=== PATIENT | male | born 1955 | race Caucasian/White ===

== ENCOUNTER → 2017-09-29 | Day surgery (SDC) | payer OTHER ==
[2017-09-28 09:46] VITALS: Ht 177.8 cm; Wt 102.3 kg
[~2017-09-29] VITALS: Ht 177.8 cm; Wt 102.3 kg
[~2017-09-29] MED LIST: ADAL1KIT SC; LIDOCAINE HCL 2% 2 ML VIAL (20MG/ML) ONE; MIDAZOLAM HCL 1 MG/ML 2ML VIAL ONE; MULT-506 PO; ONDANSETRON INJ 2 MG/ML 2 ML VIAL ONE; PANT40TA PO; PROPOFOL IV EMULSION 10 MG/ML 20 ML VIAL IV ONE; SYMIN160 INH
--- NOTE | 2017-09-29 11:04 | Endo History and Physical ---
History & Physical Date of Service: Sep 29, 2017. Chief Complaint: ulcerative colitis Referring Physician: Dr. Maynor East History of Present Illness 62 yo CM who presents for colonoscopy secondary to ulcerative colitis. Past Medical History Reflux, Depression Past Surgical History Hx Cardiac Surgery: No Hx Internal Defibrillator: No Hx Pacemaker: No Hx Abdominal Surgery: No Hx of Implantable Prosthesis: No Hx Post-Op Nausea and Vomiting: No Hx Cancer Surgery: No Hx Thoracic Surgery: No Hx Orthopedic: Yes (LT/RT RCR) Hx Urinary Tract Surgery: No Family History IBD Social History Smoking Status: Former Smoker Hx Substance Use: Yes (OCCASIONAL CANNIBUS FOR UC SYMPTOMS) Hx Alcohol Use: Yes ("HARDLY EVER") Allergies Coded Allergies: Infliximab (Verified Adverse Reaction, Intermediate, Redness, Itching, Hives, 09/28/17) Patient had remicade X 3 first two times he had redness and itching, on the third time he had redness, itching, and hives. Dr. Maykel braun and DC medication. Current Medications Reported Home Medications Medications Dose Route/Sig Max Daily Dose Days Date Category Symbicort 160/4.5 Inhaler (Budesonide/Formoterol Fumarate) Aero 2 Puffs INH BID PRN 09/28/17 Reported Multivitamin (Multivitamins) Tab 1 Tab PO DAILY 09/28/17 Reported Protonix (Pantoprazole Sodium) 40 Mg Tab 40 Mg PO QAM 12/18/14 Reported Humira (Adalimumab) 40 Mg/0.8 Ml Kit 40 Mg SC [id number] 01/24/14 Reported Vital Signs Weight (Kilograms): 102.27 Height (Feet): 5 Height (Inches): 10 Date Time Temp Pulse Resp B/P (MAP) Pulse Ox O2 Delivery O2 Flow Rate FiO2 09/29/17 10:40 36.7 75 18 146/94 (111) 98 Room Air Physical Exam General Appearance: WD/WN, no apparent distress Respiratory/Chest: Auscultation: breath sounds normal Cardiovascular: Heart Auscultation: RRR Abdomen: Bowel Sounds: normal Inspection & Palpation: soft, non-distended, no tenderness, guarding & rebound Assessment and Plan Assessment: 62 yo CM who presents for colonoscopy secondary to ulcerative colitis. Plan: Proceed with colonoscopy.
--- NOTE | 2017-09-29 12:24 | Discharge Instructions ---
Endoscopy Patient Instructions Date / Procedure(s) Performed Sep 29, 2017. Colonoscopy Allergy Information Coded Allergies: Infliximab (Verified Adverse Reaction, Intermediate, Redness, Itching, Hives, 09/28/17) Patient had remicade X 3 first two times he had redness and itching, on the third time he had redness, itching, and hives. Dr. Maykel braun and JOSE medication. Discharge Date / Findings Sep 29, 2017. Ulcerative colitis with mild disease activity in left colon s/p biopsies Medication Instructions OK to resume all medications today as prescribed Reported Home Medications Medications Dose Route/Sig Max Daily Dose Days Date Category Symbicort 160/4.5 Inhaler (Budesonide/Formoterol Fumarate) Aero 2 Puffs INH BID PRN 09/28/17 Reported Multivitamin (Multivitamins) Tab 1 Tab PO DAILY 09/28/17 Reported Protonix (Pantoprazole Sodium) 40 Mg Tab 40 Mg PO QAM 12/18/14 Reported Humira (Adalimumab) 40 Mg/0.8 Ml Kit 40 Mg SC [id number] 01/24/14 Reported Provider Instructions Activity Restrictions - No exercising or heavy lifting for 24 hours. - Do not drink alcohol the day of the procedure. - Do not drive a car or operate machinery until the day after the procedure. - Do not make any important decisions or sign important papers in 24 hours after the procedure. Following Day: - Return to full activity which may include returning to work/school. Diet Start your diet with liquids and light foods (jello, soup, juice, toast). Then eat your usual diet if not nauseated. Treatment For Common After Affects For mild abdominal pain, bloating, or excessive gas: - Rest - Eat lightly - Lie on right side Follow-Up Information Follow-up with Dr. Maynor East as scheduled Anesthesia Information What You Should Know You have had a procedure that required some medicine to reduce anxiety and discomfort. This treatment is called moderate sedation. After receiving the treatment, you may be sleepy, but you will be able to breathe on your own. The effects of the treatment may last for several hours. Follow these instructions along with Activity/Diet recommendations noted above: * Do NOT do anything where dizziness or clumsiness would be dangerous. * Rest quietly at home today, then you can be up and about tomorrow. * Have a responsible person stay with you the rest of today. * You may have had an I.V. today. If so, you may take the dressing off later today. Recommendations Call your doctor if: * Trouble breathing * Continuous vomiting for more than 24 hours * Temperature above 101 degrees * Severe abdominal pain or bloating * Pain not relieved by pain medicine ordered * There is increased drainage or redness from any incision * A large amount of rectal bleeding greater than 2-3 tablespoons. (If you had a polyp/s removed or have hemorrhoids, a small amount of blood - from the rectum is to be expected.) * You have any unanswered questions or concerns. IN THE EVENT OF A SERIOUS EMERGENCY, GO TO THE NEAREST EMERGENCY ROOM Your discharge instructions were prepared by provider Noe Brar. Patient Instructions Signature Page Isauro Costello Patient (or Guardian) Signature/Date: I have read and understand the instructions given to me by my caregivers. Caregiver/RN/Doctor Signature/Date: The above-named patient and/or guardian has received patient instructions on this date. + Original Patient Signature Page (only) stays with chart. Please make copy for patient.
--- NOTE | 2017-09-29 12:32 | GI REPORT ---
Procedure Date: 09/29/2017 11:34 AM Procedure: Colonoscopy Indications: Disease activity assessment of chronic ulcerative pancolitis Medicines: Monitored Anesthesia Care Complications: No immediate complications. Estimated Blood Loss: Estimated blood loss: none. Procedure: Pre-Anesthesia Assessment: - Prior to the procedure, a History and Physical was performed, and patient medications and allergies were reviewed. The patient's tolerance of previous anesthesia was also reviewed. The risks and benefits of the procedure and the sedation options and risks were discussed with the patient. All questions were answered, and informed consent was obtained. Prior Anticoagulants: The patient has taken no previous anticoagulant or antiplatelet agents. ASA Grade Assessment: III - A patient with severe systemic disease. After reviewing the risks and benefits, the patient was deemed in satisfactory condition to undergo the procedure. After I obtained informed consent, the scope was passed under direct vision. Throughout the procedure, the patient's blood pressure, pulse, and oxygen saturations were monitored continuously. The scope was introduced through the anus and advanced to the terminal ileum. The colonoscopy was performed without difficulty. The patient tolerated the procedure well. The quality of the bowel preparation was good. The terminal ileum, ileocecal valve, appendiceal orifice, and rectum were photographed. Findings: The perianal and digital rectal examinations were normal. Multiple small-mouthed diverticula were found in the sigmoid colon. Inflammation characterized by erosions and erythema was found in a continuous and circumferential pattern from the rectum to the sigmoid colon. This was mild in severity. Biopsies were taken with a cold forceps for histology. Non-bleeding internal hemorrhoids were found during retroflexion. The hemorrhoids were small. Impression: - Diverticulosis in the sigmoid colon. - Ulcerative colitis. Inflammation was found from the rectum to the sigmoid colon. This was mild in severity. Biopsied. - Non-bleeding internal hemorrhoids. Recommendation: - Resume previous diet. - Continue present medications. - Repeat colonoscopy for surveillance based on pathology results. - Return to primary care physician as previously scheduled. Noe Brar DO 09/29/2017 12:31:32 PM This report has been signed electronically. Note Initiated On: 09/29/2017 11:34 AM I attest to the content of the Intraoperative Record and orders documented therein, exceptions below
--- NOTE | 2017-09-29 12:52 | Anesthesiology Progress Note ---
Anesthesia Post Op Note Date & Time Sep 29, 2017 at 12:52 Vital Signs Pain Intensity: 0 Vital Signs Past 12 Hours Date Time Temp Pulse Resp B/P (MAP) Pulse Ox O2 Delivery O2 Flow Rate FiO2 09/29/17 12:23 36.7 90 18 137/85 (102) 95 Room Air 09/29/17 10:40 36.7 75 18 146/94 (111) 98 Room Air Notes Mental Status: alert / awake / arousable, participated in evaluation Pt Amnestic to Procedure: Yes Nausea / Vomiting: adequately controlled Pain: adequately controlled Airway Patency, RR, SpO2: stable & adequate BP & HR: stable & adequate Hydration State: stable & adequate Anesthetic Complications: no major complications apparent
[2017-09-29 12:55] VITALS: BP 144/88; PULSE 76; O2SAT 94
== END | disposition home or self-care (01) ==
LOC: C.GI 10:01
PROVIDERS: ATTEND Internal Medicine
DX: K51.00 Ulcerative (chronic) pancolitis without complications (principal); K57.30 Diverticulosis of large intestine without perforation or abscess without bleeding; K51.90 Ulcerative colitis, unspecified, without complications; K64.8 Other hemorrhoids; F12.90 Cannabis use, unspecified, uncomplicated; Z88.8 Allergy status to other drugs, medicaments and biological substances; Z79.899 Other long term (current) drug therapy; Z87.891 Personal history of nicotine dependence

== ENCOUNTER 2022-05-13 10:57 | Inpatient (IN) ==
--- NOTE | 2022-05-13 11:25 | Emergency Department Note ---
History of Present Illness General Chief complaint: Back Injury/Pain Stated complaint: BACK PAIN; CAN BARELY WALK Time Seen by Provider: 05/13/22 11:24 History of Present Illness Maximum Pain Intensity: 4 This is a 66-year-old male with a history of known disc herniation at L2-L3 and L4-L5 diagnosed via CT scan on 01/29/2022, ulcerative colitis, hypertension, prediabetes, who presents with low back pain present over the past several days, not getting any better. This starts in the low back and radiates down both legs to about the knees. The pain radiating down the right leg is new, the pain on the left is similar to prior episodes of back pain, especially when he was seen in this ED on 01/29/2022. He reports an ongoing "itching" sensation in his left lateral thigh that has been present since January. This pain began several hours after lifting and moving heavy objects in his garage. He has been taking gabapentin twice daily since January, and has recently been using previously prescribed hydrocodone and muscle relaxants without any relief. When he is laying flat, his pain is a 4 out of 10, 7 out of 10 when attempting to walk. He is having a hard time getting comfortable. He denies any chest pain, abdominal pain, nausea, vomiting, loss of bowel or bladder function, leg w eakness, urinary retention, saddle anesthesia, fevers, chills. He did follow-up with orthospine, Dr. Cavanaugh, after his episode of pain in January. He states he was offered injections but ended up declining these because his pain began to improve. He is unsure if he had an MRI of his back through [facility] [place]. Home Medications Medication Instructions Recorded Confirmed Type pantoprazole 40 mg tablet,delayed 40 mg PO QAM 12/15/21 05/13/22 History release atorvastatin 20 mg tablet 20 mg PO QPM #90 tabs 04/07/22 05/13/22 Rx tofacitinib 5 mg tablet (Xeljanz) 5 mg PO BID #180 tabs 04/21/22 05/13/22 Rx amlodipine 5 mg-olmesartan 20 mg 1 tab PO DAILY #90 tabs 04/30/22 05/13/22 Rx tablet cyclobenzaprine 5 mg tablet 5 mg PO TID PRN muscle spasm #60 04/30/22 05/13/22 Rx tabs Medical Cannabis 1 dose inhalation HS 05/13/22 05/13/22 History gabapentin 100 mg capsule 100 mg PO BID 05/13/22 05/13/22 History Allergies Allergy/AdvReac Type Severity Reaction Status Date / Time infliximab Allergy Intermediate REMICADE---Redness, Verified 05/13/22 19:33 Itching, Hives Past Med/Surg History Medical History Chronic back pain Chronic obstructive pulmonary disease mild, no inhaler Dyslipidemia per records History of antinuclear antibodies History of COVID-19 05/2021 treated at [facility] with monoclonal antibody IV infusion Hx of cataract bilat. Medical marijuana use Obesity Prediabetes Ulcerative colitis Surgical History H/O colonoscopy (10/2016) History of colonoscopy (01/09/20) Dr. Brar, yesika ulcerative colitis with inflammation from rectum to cecum, mild. Repeat recommended 2 years History of esophagogastroduodenoscopy (EGD) (01/2014) History of repair of left rotator cuff History of repair of right rotator cuff History of tooth extraction Hx of cataract extraction Lt. S/P right knee arthroscopy Family History Father Diabetes Family history of diabetes mellitus Brother Family history of diabetes mellitus Brother Family history of diabetes mellitus Other No family history of adverse response to anesthesia Ulcerative colitis Denies family history of Ovarian cancer Prostate cancer Crohn's disease Myocardial infarction Breast cancer Lung cancer Colorectal cancer Social History Smoking Status: Never smoker Tobacco Type: E-cigarettes / Vaping Age Started Using Tobacco: 17; Age Quit Using Tobacco: 52; packs per day: 1; Years Smoked: 35; Cigarettes Per Day: 20/day; Number of Years Since Quit: 12; Second Hand Exposure: No; Hx Alcohol Use: Yes Alcohol type: hard liquor Alcohol Intake Frequency: Monthly or Less Hx Substance Use: Yes (medical marijuana "nightly") Last Used Substance: Hours (ago) Last Used Substance Other:: 12/14/21 Preferred Language: Iraqi Communication Ability: Effective Visual Impairment: Limited Hearing Ability: Normal 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 and A total of 10 systems reviewed and were otherwise negative Physical Exam Vital Signs Vital Signs - 24 hr 05/13/22 11:03 05/13/22 13:00 05/13/22 13:32 Temperature 98.1 F Temperature Source Temporal Artery Scan Pulse Rate 99 H Pulse Rate [Finger] 75 Pulse Rhythm Regular Pulse Rhythm [Finger] Regular Pulse Strength Normal Pulse Strength [Finger] Normal Respiratory Rate 20 16 Respiratory Effort / Characteristics Non-Labored Spontaneous Non-Labored Respiratory Depth Normal Normal Respiratory Pattern Regular Regular Blood Pressure 119/67 Blood Pressure [Right Arm] Blood Pressure Mean 84 Blood Pressure Mean [Right Arm] Blood Pressure Position Sitting Blood Pressure Position [Right Arm] Pulse Oximetry 95 98 98 Oxygen Delivery Method Room Air Room Air Room Air Sepsis Recent Fever Within 48 Hours No Sepsis New/Unexplained Change in Mental Status N/A Sepsis Action Taken by Nursing No Action Required 05/13/22 17:00 05/13/22 20:21 Temperature Temperature Source Pulse Rate Pulse Rate [Finger] 84 90 Pulse Rhythm Pulse Rhythm [Finger] Pulse Strength Pulse Strength [Finger] Respiratory Rate 20 17 Respiratory Effort / Characteristics Non-Labored Spontaneous Respiratory Depth Normal Respiratory Pattern Blood Pressure Blood Pressure [Right Arm] 148/87 H 151/96 H Blood Pressure Mean Blood Pressure Mean [Right Arm] 107 114 Blood Pressure Position Blood Pressure Position [Right Arm] Lying Pulse Oximetry 98 92 Oxygen Delivery Method Room Air Sepsis Recent Fever Within 48 Hours Sepsis New/Unexplained Change in Mental Status Sepsis Action Taken by Nursing CONSTITUTIONAL: Well developed, well nourished, appears uncomfortable having a hard time finding a comfortable position on the stretcher. HEAD: Normocephalic, atraumatic. EYES: conjunctivae normal, extraocular muscles intact. ENMT: External ears normal. Nose with normal external appearance, no congestion. Oral mucous membranes moist. Oropharynx normal. NECK: Full active range of motion. RESPIRATORY: Breathing unlabored and symmetric. Lungs clear to auscultation bilaterally. No wheeze, rales, or rhonchi. CARDIOVASCULAR: Regular rate and rhythm. No murmurs, rubs, or gallops. DP pulses 2+ bilaterally. CHEST: Nontender, no crepitus. ABDOMEN: Normal bowel sounds. Soft, nontender, no peritonitis. No masses. MUSCULOSKELETAL: Moves bilateral upper and lower extremities at all joints. Back exam: There is no significant midline tenderness in the thoracic, lumbar, or sacral spine. There is exquisite tenderness in bilateral lumbar paraspinal musculature with associated tension. Having the patient sit upright at 90 degrees or flat causes severe pain. This is improved with an angle at 45 degrees. SKIN: [place], warm, dry. No rash on the back. NEUROLOGIC: Awake, alert, oriented. Gaze is conjugate. Face symmetric, speech normal. Moves head and all four extremities spontaneously. Strength 5+ in bilateral lower extremities including dorsiflexion, plantarflexion, EHL extension. Patellar reflexes 2+ bilaterally. Subjective decreased sensation to light touch in the right calf in an L3-L4 distribution. PSYCHIATRIC: Appropriate. Normal affect Course Reevaluation(s) Reevaluation #1: Patient resting much more comfortably after Dilaudid and dexamethasone. He tolerated MRI well. He is not requiring any additional pain medication at this time. Still have a fair amount of pain anytime he changes position. Administered Medications Discontinued Medications Dexamethasone Sodium Phosphate (DexamethasonePf 10 Mg/Ml Vial) 10 mg IV NOW ONE Stop: 05/13/22 13:31 Last Admin: 05/13/22 13:36 Dose: 10 mg Documented By: HARRY Diazepam (Diazepam 5 Mg Tablet) 5 mg PO NOW STA Stop: 05/13/22 11:47 Last Admin: 05/13/22 12:12 Dose: 5 mg Documented By: HARRY Hydromorphone HCl (Hydromorphone Inj 1 Mg/Ml Syringe) 1 mg IV NOW STA Stop: 05/13/22 13:31 Last Admin: 05/13/22 13:36 Dose: 1 mg Documented By: HARRY Hydromorphone HCl (Hydromorphone Inj 1 Mg/Ml Syringe) 1 mg IV NOW STA Stop: 05/13/22 18:12 Last Admin: 05/13/22 18:23 Dose: 1 mg Documented By: SEAMUS Ketorolac Tromethamine (Ketorolac Tromethamine 15 Mg/Ml Vial) 15 mg IV NOW STA Stop: 05/13/22 11:47 Last Admin: 05/13/22 12:12 Dose: 15 mg Documented By: OAM Lidocaine (Lidocaine 5% 1 Patch) 2 patch TD NOW STA Stop: 05/13/22 11:47 Last Admin: 05/13/22 12:12 Dose: 2 patch Documented By: OAM Medical Decision Making Differential Diagnosis Disc herniation, nerve impingement, myofascial pain, muscle spasm, strain, sprain, fracture, cauda equina, renal colic, intra-abdominal, aortic, transverse myelitis, among other pathology Medical Records Attestation: I reviewed the patient's medical records. (Patient did not have an MRI obtained through [facility]) Laboratory Data Result diagrams: 05/13/22 12:04 05/13/22 12:04 Lab Results 05/13/22 05/13/22 05/13/22 Range/Units 12:04 12:04 19:57 WBC 5.62 (4.8-10.8) K/ul RBC 4.80 (4.63-6.08) M/uL Hgb 14.8 (14.0-18.0) g/dl Hct 43.0 (40.1-51.0) % MCV 89.6 (80.0-100.0) fL MCH 30.8 (25.0-34.0) pg MCHC 34.4 (32.0-36.0) g/dL RDW Std Deviation 43.0 (36.4-46.3) fL RDW Coeff of Diana 13.1 (11.5-14.5) % Plt Count 239 (130-400) K/uL MPV 10.8 (9.4-12.4) fL Immature Gran % (Auto) 0.2 % Neut % (Auto) 63.9 % Lymph % (Auto) 23.5 % [place] % (Auto) 9.6 % Eos % (Auto) 2.3 % Baso % (Auto) 0.5 % Neut # (Auto) 3.59 (1.4-6.5) K/uL Lymph # (Auto) 1.32 (1.2-3.4) K/uL [place] # (Auto) 0.54 (0.24-0.82) K/uL Eos # (Auto) 0.13 (0-0.50) K/uL Baso # (Auto) 0.03 (0-0.2) K/uL Immature Gran # (Auto) 0.01 (0.00-0.02) K/uL Sodium 139 (136-145) mmol/L Potassium 3.8 (3.5-5.1) mmol/L Chloride 106 (98-107) mmol/L Carbon Dioxide 25 (21-32) mmol/L Anion Gap 8 (3-11) BUN 20 (6-23) mg/dl Creatinine 1.06 (0.6-1.4) mg/dl Est Cr Clr Drug Dosing Not Reportable Est GFR ( Amer) 83.2 ml/min Est GFR (Non-Af Amer) 71.8 ml/min BUN/Creatinine Ratio 18.9 (10-20) Glucose 144 H (70-99(Fasting)) mg/dl Calcium 9.4 (8.5-10.1) mg/dl SARS-CoV-2, RNA, NAAT NEGATIVE (NEGATIVE) Imaging Data Radiologist's Impression: Lumbar Spine X-Ray 05/13/22 11:46 XR lumbar spine 2-3V HISTORY: 66 years-old Male known lumbar pathology, flare of pain chronic low back pain COMPARISON: CT lumbar spine 01/29/2022, chest CT 03/06/2022. TECHNIQUE: 3 views of the lumbar spine FINDINGS: Demineralized appearance of the bones. Cholelithiasis. Unremarkable soft tissues. Atherosclerosis of the aorta with fusiform and minimal dilation, 3.2 cm. No acute fracture, subluxation or endplate erosion. Minimal intervertebral disc space narrowing and spondylitic spurring with moderate facet arthrosis. IMPRESSION: 1. No acute fracture or subluxation. 2. Cholelithiasis. 3. Atherosclerosis with unchanged mild aneurysmal dilation of the abdominal aorta. ACT 112: Negative or not required by law. The above report was generated using voice recognition software. It may contain grammatical, syntax or spelling errors. Electronically signed by: Neno Flynn M.D. 05/13/2022 1:01 PM Lumbar Spine MRI 05/13/22 13:30 MR lumbar spine wo con CLINICAL HISTORY: 66 years-old Male with severe lumbar pain, known herniations, worsening. Acute severe low back pain with lower extremity radicular symptoms. COMPARISON: Lumbar spine radiographs of same day, CT lumbar spine 01/29/2022, lumbar spine MRI 01/20/2016. TECHNIQUE: Multiplanar, multi sequence MRI of the lumbar spine was performed without intravenous contrast. FINDINGS: The apparatus lineman localizer images demonstrate no gross extraspinal abnormality. 5.0 cm T2 hyperintense lesion of the right kidney is suggestive of a probable cyst. The study is mildly motion degraded. No paravertebral edema, endplate erosion or destructive bone lesion are identified. The conus medullaris terminates at the L1 level. Normal signal within the imaged thoracic spinal cord. There is minimal superior endplate compression of the L4 vertebral body with less than 20% with mild marrow edema. T12-L1: Mild facet arthrosis. No central canal or neural foraminal stenosis. L1-L2: Mild facet arthrosis. No central canal or neural foraminal stenosis. L2-L3: Mild intervertebral disc space narrowing with spondylitic spurring and small circumferential annular disc bulge. Ligamentum flavum thickening with mild to moderate facet arthrosis. Flattening of the ventral thecal sac without significant central canal stenosis. Left foraminal/far lateral disc protrusion redemonstrated resulting in mild left foraminal narrowing, likely causing mass effect upon the exiting L2 nerve root. This finding is unchanged from the comparison CT study. The right neural foramen is patent. L3-L4: Mild intervertebral disc space narrowing with spondylitic spurring and small circumferential annular disc bulge with posterior disc osteophyte complex, eccentric to the left. Mild to moderate right with moderate left lateral recess narrowing. There is abutment with slight posterior displacement of the left L4 nerve root. Ligamentum flavum thickening with moderate facet arthrosis. The central canal and right neural foramen are patent. Mild to moderate left neural foraminal narrowing, progressed from the prior MRI. L4-L5: Disc desiccation with mild intervertebral disc space narrowing and spondylitic spurring. Small circumferential annular disc bulge with posterior disc osteophyte complex. Left foraminal/far lateral annular fissure. Ligamentum flavum thickening with severe facet arthrosis. Moderate to severe central canal stenosis, AP dimension of the thecal sac measuring 6 mm. There is at least moderate narrowing of the right greater than left lateral recesses. Mild to moderate bilateral foraminal narrowing. These findings have progressively worsened from the prior study. L5-S1: Mild spondylitic spurring with moderate facet arthrosis. No central brian l or neural foraminal stenosis. IMPRESSION: 1. Discogenic degeneration with spondylitic spurring and facet arthrosis as above. 2. Left foraminal/far lateral disc protrusion at L2-L3 is redemonstrated resulting in mild left foraminal narrowing with mass effect upon the exiting L2 nerve root. These findings appear similar to the 01/29/2022 CT study. 3. Moderate to severe central canal stenosis at L4-L5 has progressively worsened from the 01/20/2016 study. 4. Minimal superior endplate compression of less than 20% at L4 with mild marrow edema, likely subacute. ACT 112: Negative or not required by law. The above report was generated using voice recognition software. It may contain grammatical, syntax or spelling errors. Dictated: 05/13/2022 4:46 PM Transcribed: 05/13/2022 5:20 PM Rissa [id number] BALA_[place] Electronically signed by: Neno Flynn M.D. 05/13/2022 5:45 PM [facility] Narrative 66-year-old male presents with low back pain radiating into bilateral thighs that worsened several days ago after lifting and moving heavy objects in his garage. He has known lumbar disc herniations discovered on CT January of this year. Fortunately, patient does not have any red flag symptoms on ROS. He does have a significant amount of lumbar paraspinal muscular tenderness and spasm which I do suspect is at least contributing to his discomfort on top of his known lumbar pathology. Heart rate 99, otherwise vitals are stable. Slight decrease sensation in the right L3-L4 distribution, otherwise strength, sensation, and patellar reflexes are intact. Attempted to get patient comfortable with IV Valium, Toradol, and Lidoderm patches. X-rays of the lumbar spine were obtained demonstrating no significant changes. Labs show a glucose of 144, otherwise no significant abnormalities identified. On reevaluation the patient felt slightly better however his pain quickly returned so he was treated with Decadron and Dilaudid. As patient has already had a recent CT scan with progression of symptoms, decision was made to perform an MRI in the emergency department. While awaiting results, his pain was better controlled however it did begin to return and another dose of Dilaudid was required. Lumbar MRI redemonstrates the lateral disc protrusion at L2-L3, progression of the central canal stenosis at L4-L5 now moderate to severe, and a potentially new minimal superior endplate compression fracture at L4, likely subacute. Patient does not feel he can adequately function at home and given the amount of pain medication he is requiring, I spoke with Dr. Cavanaugh (orthospine on-call) who agreed the patient should be admitted for pain management and discussion of further management in the acute setting. I spoke with Dr. Frost (hospitalist) regarding the case who agrees to admit the patient under medicine with orthospine consult. Impression & Plan Acute radicular low back pain, Uncontrolled pain, Spinal stenosis at L4-L5 level, Closed compression fracture of L4 vertebra Discharge Plan Visit Data Chief Complaint: Back Injury/Pain Stated Complaint: BACK PAIN; CAN BARELY WALK ED Provider: Austyn Grayson ED Midlevel Provider: Jose Hicks Discharge Problem: Acute radicular low back pain, Uncontrolled pain, Spinal stenosis at L4-L5 level, Closed compression fracture of L4 vertebra Patient Disposition: Admitted As Inpatient Condition: Fair Forms Stand Alone Forms: [facility] Prescriptions Prescriptions: No Action atorvastatin 20 mg tablet 20 mg PO QPM Qty: 90 3RF Xeljanz 5 mg tablet 5 mg PO BID Qty: 180 3RF cyclobenzaprine 5 mg tablet 5 mg PO TID PRN (Reason: muscle spasm) Qty: 60 0RF amlodipine-olmesartan 5-20 mg tablet 1 tab PO DAILY Qty: 90 2RF pantoprazole 40 mg tablet,delayed release (DR/EC) 40 mg PO QAM Rx Instructions: TAKE 1 TABLET DAILY Medical Cannabis 1 dose inhalation HS Rx Instructions: VAPS gabapentin 100 mg capsule 100 mg PO BID Referrals Referrals: Bernice Ulloa CRNP [Nurse Practitioner] - : Closed compression fracture of L4 vertebra Qualifiers: Encounter type: initial encounter Qualified Code(s): S32.040A - Wedge compression fracture of fourth lumbar vertebra, initial encounter for closed fracture
[2022-05-13] MEDS ORDERED: KETOROLAC TROMETHAMINE 15 MG/ML VIAL IV STA (11:46)
[2022-05-13] MEDS ORDERED: diazePAM 5 MG TABLET PO STA (11:46)
[2022-05-13] MEDS ORDERED: LIDOCAINE 5% 1 PATCH TD STA (11:46)
[2022-05-13 12:24] LABS: Basophils # (auto) 0.03 K/uL (0-0.2); Basophils % (auto) 0.5 %; Eosinophils # (auto) 0.13 K/uL (0-0.50); Eosinophils % (auto) 2.3 %; Hemoglobin 14.8 g/dl (14.0-18.0); Immature Granulocytes # (auto) 0.01 K/uL (0.00-0.02); Immature Granulocytes % (auto) 0.2 %; Lymphocytes # (auto) 1.32 K/uL (1.2-3.4); Lymphocytes % (auto) 23.5 %; Mean Corpuscular Hemoglobin 30.8 pg (25.0-34.0); Mean Corpuscular Hgb Conc 34.4 g/dL (32.0-36.0); Mean Corpuscular Volume 89.6 fL (80.0-100.0); Mean Platelet Volume 10.8 fL (9.4-12.4); Monocytes # (auto) 0.54 K/uL (0.24-0.82); Monocytes % (auto) 9.6 %; Neutrophils # (auto) 3.59 K/uL (1.4-6.5); Neutrophils % (auto) 63.9 %; Platelet Count 239 K/uL (130-400); RDW Coefficient of Variation 13.1 % (11.5-14.5); White Blood Count 5.62 K/ul (4.8-10.8)
[2022-05-13 12:42] LABS: Anion Gap 8 (3-11); BUN Creatinine Ratio 18.9 (10-20); Blood Urea Nitrogen 20 mg/dl (6-23); Calcium 9.4 mg/dl (8.5-10.1); Carbon Dioxide 25 mmol/L (21-32); Chloride 106 mmol/L (98-107); Est GFR (African American) 83.2 ml/min; Est GFR (Non-African American) 71.8 ml/min; Glucose 144 mg/dl (70-99(Fasting)); Potassium 3.8 mmol/L (3.5-5.1); Sodium 139 mmol/L (136-145)
--- NOTE | 2022-05-13 13:02 | XRay Report ---
XR lumbar spine 2-3V HISTORY: 66 years-old Male known lumbar pathology, flare of pain chronic low back pain COMPARISON: CT lumbar spine 01/29/2022, chest CT 03/06/2022. TECHNIQUE: 3 views of the lumbar spine FINDINGS: Demineralized appearance of the bones. Cholelithiasis. Unremarkable soft tissues. Atherosclerosis of the aorta with fusiform and minimal dilation, 3.2 cm. No acute fracture, subluxation or endplate eros ion. Minimal intervertebral disc space narrowing and spondylitic spurring with moderate facet arthros is. IMPRESSION: 1. No acute fracture or subluxation. 2. Cholelithiasis. 3. Atherosclerosis with unchanged mild aneurysmal dilation of the abdominal aorta. ACT 112: Negative or not required by law. The above report was generated using voice recognition software. It may contain grammatical, syntax o r spelling errors. Electronically signed by: Neno Flynn M.D. 05/13/2022 1:01 PM
[2022-05-13] MEDS ORDERED: HYDROmorphone INJ 1 MG/ML SYRINGE IV STA ×2 (13:30→18:11)
[2022-05-13] MEDS ORDERED: dexAMETHasone**PF** 10 MG/ML VIAL IV ONE (13:30)
--- NOTE | 2022-05-13 17:46 | Magnetic Resonance Report ---
MR lumbar spine wo con CLINICAL HISTORY: 66 years-old Male with severe lumbar pain, known herniations, worsening. Acute sev ere low back pain with lower extremity radicular symptoms. COMPARISON: Lumbar spine radiographs of same day, CT lumbar spine 01/29/2022, lumbar spine MRI 01/20/20 16. TECHNIQUE: Multiplanar, multi sequence MRI of the lumbar spine was performed without intravenous cont rast. FINDINGS: The forest fire management officer localizer images demonstrate no gross extraspinal abnormality. 5.0 cm T2 hyperintense lesio n of the right kidney is suggestive of a probable cyst. The study is mildly motion degraded. No parav ertebral edema, endplate erosion or destructive bone lesion are identified. The conus medullaris term inates at the L1 level. Normal signal within the imaged thoracic spinal cord. There is minimal superi or endplate compression of the L4 vertebral body with less than 20% with mild marrow edema. T12-L1: Mild facet arthrosis. No central canal or neural foraminal stenosis. L1-L2: Mild facet arthrosis. No central canal or neural foraminal stenosis. L2-L3: Mild intervertebral disc space narrowing with spondylitic spurring and small circumferential annular disc bulge. Ligamentum flavum thickening with mild to moderate facet arthrosis. Flattening of the ventral thecal sac without significant central canal stenosis. Left foraminal/far lateral disc p rotrusion redemonstrated resulting in mild left foraminal narrowing, likely causing mass effect upon the exiting L2 nerve root. This finding is unchanged from the comparison CT study. The right neural f oramen is patent. L3-L4: Mild intervertebral disc space narrowing with spondylitic spurring and small circumferential annular disc bulge with posterior disc osteophyte complex, eccentric to the left. Mild to moderate ri ght with moderate left lateral recess narrowing. There is abutment with slight posterior displacement of the left L4 nerve root. Ligamentum flavum thickening with moderate facet arthrosis. The central c anal and right neural foramen are patent. Mild to moderate left neural foraminal narrowing, progresse d from the prior MRI. L4-L5: Disc desiccation with mild intervertebral disc space narrowing and spondylitic spurring. Smal l circumferential annular disc bulge with posterior disc osteophyte complex. Left foraminal/far later al annular fissure. Ligamentum flavum thickening with severe facet arthrosis. Moderate to severe cent ral canal stenosis, AP dimension of the thecal sac measuring 6 mm. There is at least moderate narrowi ng of the right greater than left lateral recesses. Mild to moderate bilateral foraminal narrowing. T hese findings have progressively worsened from the prior study. L5-S1: Mild spondylitic spurring with moderate facet arthrosis. No central canal or neural foraminal stenosis. IMPRESSION: 1. Discogenic degeneration with spondylitic spurring and facet arthrosis as above. 2. Left foraminal/far lateral disc protrusion at L2-L3 is redemonstrated resulting in mild left avani inal narrowing with mass effect upon the exiting L2 nerve root. These findings appear similar to the 01/29/2022 CT study. 3. Moderate to severe central canal stenosis at L4-L5 has progressively worsened from the 01/20/2016 s tudy. 4. Minimal superior endplate compression of less than 20% at L4 with mild marrow edema, likely subacu te. ACT 112: Negative or not required by law. The above report was generated using voice recognition software. It may contain grammatical, syntax o r spelling errors. Dictated: 05/13/2022 4:46 PM Transcribed: 05/13/2022 5:20 PM Rissa [id number] [facility] Electronically signed by: Neno Flynn M.D. 05/13/2022 5:45 PM
--- NOTE | 2022-05-13 19:38 | History & Physical Report ---
Date of Service May 13, 2022 Assessment & Plan (1) Intractable back pain: Plan: 66yo male with history of HTN, GERD, UC on Xeljanz presenting with acute on chronic back pain with radicular symptoms, diminished reflexes noted on RLE, possibly urinary frequency. Patient denies trauma, no fever/chills. MRI of the lumbar spine performed - results above - found with left L2 nerve root compression similar to prior CT from 01/2022 and worsening central canal stenosis at L4-L5, minimal superior endplate compression of <20% with mild marrow edema. Patient has received some relief with Dilaudid, Valium and Toradol given in ER but is still in significant discomfort. -Will admit to medical -Continue pain control with scheduled Tylenol 1gm TID, Lidoderm, Heat -Continue Valium 5mg po BID PRN -Morphine by tiered pain scale -Zofran and bowel regimen as needed -Toradol 15mg IV q 6 hours PRN -Continue Gabapentin 100mg po BID -Check bladder scan with straight cath as needed -Orthopedic surgery consultation appreciated - will keep patient NPO after midnight tonight for possible OR in AM Per RCRI criteria patient is Class 1 risk. Physical exertion is limited secondary to pain but he denies exertional chest pain or anginal equivalents. He is medically optimized and is able to proceed to surgery with no additional workup. (2) Hypertension: Plan: Blood pressure presently 151/96 -Pain control -Continue Amlodipine 5mg po daily -Will hold Olmesartan for now for possible surgical intervention -Monitor BP (3) Dyslipidemia: Plan: Chronic. -Continue Atorvastatin 20mg po daily (4) Diabetes mellitus: Plan: Diet controlled -Monitor (5) GERD without esophagitis: Plan: Chronic. Symptoms well controlled -Continue Protonix 40mg po daily (6) Ulcerative colitis: Plan: Chronic -Patient is on Xeljanz. Will hold for now for possible surgery History of Present Illness Chief Complaint: severe back pain Primary Care Provider: DO Isauro Prasad Costello is a 66yo male with history of mild COPD, HLP and Ulcerative colitis on Xeljanz presenting with acute worsening of chronic back pain. Patient had an injury at work many years ago and has some chronic back pain - mostly on left side. He has seen Dr. Cavanaugh in the past. He was recently started on Gabapentin 100mg po TID and Flexeril PRN for sciatic pain and had a consultation for PT placed. He has had acute worsening of his back pain over the last 4-5 days. Pain is now worse on the right side - lumbar pain with radiation into the buttock, anterior and lateral thigh to his knee. He has the feeling of restlessness and formication in his left leg which is baseline for him. Pain is severe, patient with difficulty with ambulation. He has been taking his Gabapentin, Flexeril and Hydrocodone with minimal relief. He denies fall or trauma. No fever, chills. He did note some mild increase in urinary frequency today as well as some possible retention - feeling of incomplete emptying. No bowel complaints. He does report progressive bilateral LE weakness over the last several months. Patient had a CT of the lumbar spine performed on 01/29/22 which revealed a large left lateral disc extrusion at L2-L3 with possible impingement on the left L2 nerve root as well as a right lateral disc extrusion at L4-L4 with possible impingment on the exiting L4 nerve root. In the ER patient is afebrile, HD stable, NAD. He is resting on his left side in bed. Uncomfortable but in NAD. ER course: Lidocaine patch, Valium 5mg PO, Toradol 15mg IV, Dilaudid 1mg IV x 2 doses, Dexamethasone 10mg IV Allergies Allergy/AdvReac Type Severity Reaction Status Date / Time infliximab Allergy Intermediate REMICADE---Redness, Verified 05/13/22 19:33 Itching, Hives Home Medications Medication Instructions Recorded Confirmed Type pantoprazole 40 mg tablet,delayed 40 mg PO QAM 12/15/21 05/13/22 History release atorvastatin 20 mg tablet 20 mg PO QPM #90 tabs 04/07/22 05/13/22 Rx tofacitinib 5 mg tablet (Xeljanz) 5 mg PO BID #180 tabs 04/21/22 05/13/22 Rx amlodipine 5 mg-olmesartan 20 mg 1 tab PO DAILY #90 tabs 04/30/22 05/13/22 Rx tablet cyclobenzaprine 5 mg tablet 5 mg PO TID PRN muscle spasm #60 04/30/22 05/13/22 Rx tabs Medical Cannabis 1 dose inhalation HS 05/13/22 05/13/22 History gabapentin 100 mg capsule 100 mg PO BID 05/13/22 05/13/22 History Past Med/Surg History Medical History (Updated 05/13/22 @ 21:21 by Virginia Mazariegos DO) Chronic back pain Chronic obstructive pulmonary disease mild, no inhaler Dyslipidemia per records History of antinuclear antibodies History of COVID-19 05/2021 treated at [facility] with monoclonal antibody IV infusion Hx of cataract bilat. Medical marijuana use Obesity Prediabetes Ulcerative colitis Surgical History H/O colonoscopy (10/2016) History of colonoscopy (01/09/20) Dr. Brar, napoles ulcerative colitis with inflammation from rectum to cecum, mild. Repeat recommended 2 years History of esophagogastroduodenoscopy (EGD) (01/2014) History of repair of left rotator cuff History of repair of right rotator cuff History of tooth extraction Hx of cataract extraction Lt. S/P right knee arthroscopy Family History Father Diabetes Family history of diabetes mellitus Brother Family history of diabetes mellitus Brother Family history of diabetes mellitus Other No family history of adverse response to anesthesia Ulcerative colitis Denies family history of Ovarian cancer Prostate cancer Crohn's disease Myocardial infarction Breast cancer Lung cancer Colorectal cancer Social History Smoking Status: Never smoker Tobacco Type: E-cigarettes / Vaping Age Started Using Tobacco: 17; Age Quit Using Tobacco: 52; packs per day: 1; Years Smoked: 35; Cigarettes Per Day: 20/day; Number of Years Since Quit: 12; Second Hand Exposure: No; Hx Alcohol Use: Yes Alcohol type: hard liquor Alcohol Intake Frequency: Monthly or Less Hx Substance Use: Yes (medical marijuana "nightly") Last Used Substance: Hours (ago) Last Used Substance Other:: 12/14/21 Preferred Language: Montenegrin Communication Ability: Effective Visual Impairment: Limited Hearing Ability: Normal Ticket Scheduler Required: No Beliefs That Will Affect Care: None marital status: Current Living Situation: Spouse current occupational status: retired Feels Safe at Home: Yes Childhood Exposure to Second-Hand Smoke: Yes caffeine: Yes during the past year weight has: remained stable Dental Care, Regularly: No Physical Activity Frequency: Daily Seatbelt Use: always Sunscreen Use: Yes Assistive Devices: Glasses Review of Systems Review of Systems: All systems reviewed & are unremarkable except as noted in HPI & below Physical Exam Physical Exam: General: patient uncomfortable, resting on left side in bed, NAD, AA&O x 4 Skin: warm, dry, intact, multiple seborrheic keratoses noted on arms, legs and face HEENT: NC/AT, PERRL, EOMI, anicteric sclera, conjunctiva without injection, external ear normal to inspection and nontender, nares patent, moist mucus membranes, dentition intact, no oropharyngeal lesions, neck supple, trachea midline, no LAD, no thyromegaly, no JVD Heart: +S1/S2, regular, no m/r/g Lungs: equal air entry bilaterally, no rales/rhonchi/wheezes Abd: +BS, soft, NT/ND, no masses/organomegaly/ascites Ext: warm, 2+ pulses in UE/LE bilaterally, no clubbing/cyanosis or edema Neuro: AA&O x 4, speech intact, no focal deficits, sensation to light touch intact, MS 5/5 in bilateral LE - limited slightly by pain, diminished patellar and achilles reflex noted on RLE Results & Data Results & Data ([facility]) Vital Signs (Past 12 Hours) Vital Signs Temp Pulse Pulse Resp BP BP Pulse Ox 05/13/22 17:00 84 20 148/87 H 98 05/13/22 13:32 98 05/13/22 13:00 75 16 98 05/13/22 11:03 36.7 C 99 H 20 119/67 95 O2 Del Method 05/13/22 17:00 05/13/22 13:32 Room Air 05/13/22 13:00 Room Air 05/13/22 11:03 Room Air Laboratory Results Laboratory Results WBC 5.62 K/ul (4.8-10.8) 05/13/22 12:04 RBC 4.80 M/uL (4.63-6.08) 05/13/22 12:04 Hgb 14.8 g/dl (14.0-18.0) 05/13/22 12:04 Hct 43.0 % (40.1-51.0) 05/13/22 12:04 MCV 89.6 fL (80.0-100.0) 05/13/22 12:04 MCH 30.8 pg (25.0-34.0) 05/13/22 12:04 MCHC 34.4 g/dL (32.0-36.0) 05/13/22 12:04 RDW Std Deviation 43.0 fL (36.4-46.3) 05/13/22 12:04 RDW Coeff of Diana 13.1 % (11.5-14.5) 05/13/22 12:04 Plt Count 239 K/uL (130-400) 05/13/22 12:04 MPV 10.8 fL (9.4-12.4) 05/13/22 12:04 Immature Gran % (Auto) 0.2 % 05/13/22 12:04 Neut % (Auto) 63.9 % 05/13/22 12:04 Lymph % (Auto) 23.5 % 05/13/22 12:04 Boundary % (Auto) 9.6 % 05/13/22 12:04 Eos % (Auto) 2.3 % 05/13/22 12:04 Baso % (Auto) 0.5 % 05/13/22 12:04 Neut # (Auto) 3.59 K/uL (1.4-6.5) 05/13/22 12:04 Lymph # (Auto) 1.32 K/uL (1.2-3.4) 05/13/22 12:04 Boundary # (Auto) 0.54 K/uL (0.24-0.82) 05/13/22 12:04 Eos # (Auto) 0.13 K/uL (0-0.50) 05/13/22 12:04 Baso # (Auto) 0.03 K/uL (0-0.2) 05/13/22 12:04 Immature Gran # (Auto) 0.01 K/uL (0.00-0.02) 05/13/22 12:04 Sodium 139 mmol/L (136-145) 05/13/22 12:04 Potassium 3.8 mmol/L (3.5-5.1) 05/13/22 12:04 Chloride 106 mmol/L (98-107) 05/13/22 12:04 Carbon Dioxide 25 mmol/L (21-32) 05/13/22 12:04 Anion Gap 8 (3-11) 05/13/22 12:04 BUN 20 mg/dl (6-23) 05/13/22 12:04 Creatinine 1.06 mg/dl (0.6-1.4) 05/13/22 12:04 Est Cr Clr Drug Dosing Not Reportable 05/13/22 12:04 Est GFR ( Amer) 83.2 ml/min 05/13/22 12:04 Est GFR (Non-Af Amer) 71.8 ml/min 05/13/22 12:04 BUN/Creatinine Ratio 18.9 (10-20) 05/13/22 12:04 Glucose 144 mg/dl (70-99(Fasting)) H 05/13/22 12:04 Calcium 9.4 mg/dl (8.5-10.1) 05/13/22 12:04 SARS-CoV-2, RNA, NAAT NEGATIVE (NEGATIVE) 05/13/22 19:57 Impressions Lumbar Spine X-Ray 05/13/22 11:46 XR lumbar spine 2-3V HISTORY: 66 years-old Male known lumbar pathology, flare of pain chronic low back pain COMPARISON: CT lumbar spine 01/29/2022, chest CT 03/06/2022. TECHNIQUE: 3 views of the lumbar spine FINDINGS: Demineralized appearance of the bones. Cholelithiasis. Unremarkable soft tissues. Atherosclerosis of the aorta with fusiform and minimal dilation, 3.2 cm. No acute fracture, subluxation or endplate erosion. Minimal intervertebral disc space narrowing and spondylitic spurring with moderate facet arthrosis. IMPRESSION: 1. No acute fracture or subluxation. 2. Cholelithiasis. 3. Atherosclerosis with unchanged mild aneurysmal dilation of the abdominal aorta. ACT 112: Negative or not required by law. The above report was generated using voice recognition software. It may contain grammatical, syntax or spelling errors. Electronically signed by: Neno Flynn M.D. 05/13/2022 1:01 PM Lumbar Spine MRI 05/13/22 13:30 MR lumbar spine wo con CLINICAL HISTORY: 66 years-old Male with severe lumbar pain, known herniations, worsening. Acute severe low back pain with lower extremity radicular symptoms. COMPARISON: Lumbar spine radiographs of same day, CT lumbar spine 01/29/2022, lumbar spine MRI 01/20/2016. TECHNIQUE: Multiplanar, multi sequence MRI of the lumbar spine was performed without intravenous contrast. 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 5.0 cm T2 hyperintense lesion of the right kidney is suggestive of a probable cyst. The study is mildly motion degraded. No paravertebral edema, endplate erosion or destructive bone lesion are identified. The conus medullaris terminates at the L 1 level. Normal signal within the imaged thoracic spinal cord. There is minimal superior endplate compression of the L4 vertebral body with less than 20% with mild marrow edema. T12-L1: Mild facet arthrosis. No central canal or neural foraminal stenosis. L1-L2: Mild facet arthrosis. No central canal or neural foraminal stenosis. L2-L3: Mild intervertebral disc space narrowing with spondylitic spurring and small circumferential annular disc bulge. Ligamentum flavum thickening with mild to moderate facet arthrosis. Flattening of the ventral thecal sac without significant central canal stenosis. Left foraminal/far lateral disc protrusion redemonstrated resulting in mild left foraminal narrowing, likely causing mass effect upon the exiting L2 nerve root. This finding is unchanged from the comparison CT study. The right neural foramen is patent. L3-L4: Mild intervertebral disc space narrowing with spondylitic spurring and small circumferential annular disc bulge with posterior disc osteophyte complex, eccentric to the left. Mild to moderate right with moderate left lateral recess narrowing. There is abutment with slight posterior displacement of the left L4 nerve root. Ligamentum flavum thickening with moderate facet arthrosis. The central canal and right neural foramen are patent. Mild to moderate left neural foraminal narrowing, progressed from the prior MRI. L4-L5: Disc desiccation with mild intervertebral disc space narrowing and spondylitic spurring. Small circumferential annular disc bulge with posterior disc osteophyte complex. Left foraminal/far lateral annular fissure. Ligamentum flavum thickening with severe facet arthrosis. Moderate to severe central canal stenosis, AP dimension of the thecal sac measuring 6 mm. There is at least moderate narrowing of the right greater than left lateral recesses. Mild to moderate bilateral foraminal narrowing. These findings have progressively worsened from the prior study. L5-S1: Mild spondylitic spurring with moderate facet arthrosis. No central canal or neural foraminal stenosis. IMPRESSION: 1. Discogenic degeneration with spondylitic spurring and facet arthrosis as above. 2. Left foraminal/far lateral disc protrusion at L2-L3 is redemonstrated resulting in mild left foraminal narrowing with mass effect upon the exiting L2 nerve root. These findings appear similar to the 01/29/2022 CT study. 3. Moderate to severe central canal stenosis at L4-L5 has progressively worsened from the 01/20/2016 study. 4. Minimal superior endplate compression of less than 20% at L4 with mild marrow edema, likely subacute. ACT 112: Negative or not required by law. The above report was generated using voice recognition software. It may contain grammatical, syntax or spelling errors. Dictated: 05/13/2022 4:46 PM Transcribed: 05/13/2022 5:20 PM Rissa [id number] [id number] Electronically signed by: Neno Flynn M.D. 05/13/2022 5:45 PM PG Care Time/CCT Total # of Minutes Spent Total Time Spent with Patient: Total time spent is greater than 50% in coordination of care (as documented) at patient's floor/unit and/or counseling patient: Coding Level of Care Code 97632 Initial Inpt Care Lvl 3 Diagnoses Intractable back pain M54.9 Hypertension I10 Dyslipidemia E78.5 Diabetes mellitus E11.9 GERD without esophagitis K21.9 Ulcerative colitis K51.90
[2022-05-13] MEDS ORDERED: KETOROLAC TROMETHAMINE 15 MG/ML VIAL IV PRN (22:44)
[2022-05-13] MEDS ORDERED: diazePAM 5 MG TABLET PO PRN (22:44)
[2022-05-13] MEDS ORDERED: ONDANSETRON INJ 2 MG/ML 2 ML VIAL IV PRN (22:44)
[2022-05-13] MEDS ORDERED: DOCUSATE SODIUM 100 MG CAP PO PRN (22:44)
[2022-05-13] MEDS ORDERED: SENNA 8.6 MG TAB PO PRN (22:44)
[2022-05-13] MEDS ORDERED: POLYETHYLENE (MIRALAX) 17 GM PACK PO PRN (22:44)
[2022-05-13] MEDS ORDERED: MoRPHine SULFATE 4 MG/ML 1 ML CARP\\VIAL IV PRN (22:44)
[2022-05-13] MEDS: MoRPHine SULFATE 2 MG/ML CARP IV PRN (22:56)
[2022-05-14] MEDS: ACETAMINOPHEN 500 MG TAB PO SCH ×3 (00:05→15:27)
[2022-05-14] MEDS: MELATONIN 3 MG TAB PO PRN ×2 (00:05→20:21)
[2022-05-14] MEDS: MoRPHine SULFATE 2 MG/ML CARP IV PRN ×3 (02:08→20:21)
[2022-05-14] MEDS: LIDOCAINE 5% 1 PATCH TD SCH (07:42)
[2022-05-14 08:12] LABS: Hemoglobin 15.1 g/dl (14.0-18.0); Mean Corpuscular Hemoglobin 30.8 pg (25.0-34.0); Mean Corpuscular Hgb Conc 35.1 g/dL (32.0-36.0); Mean Corpuscular Volume 87.6 fL (80.0-100.0); Mean Platelet Volume 10.4 fL (9.4-12.4); Platelet Count 267 K/uL (130-400); RDW Coefficient of Variation 12.8 % (11.5-14.5); RDW Standard Deviation 41.2 fL (36.4-46.3); Red Blood Count 4.91 M/uL (4.63-6.08); White Blood Count 10.87 K/ul (4.8-10.8)
[2022-05-14 08:23] LABS: INR 1.1 (0.9-1.1); Prothrombin Time 11.7 Seconds (9.0-12.0)
[2022-05-14 08:37] LABS: BUN Creatinine Ratio 29.4 (10-20); Calcium 9.4 mg/dl (8.5-10.1); Creatinine Clr Calc Pharmacy 85.8 ml/min; Est GFR (African American) 87.1 ml/min; Est GFR (Non-African American) 75.2 ml/min
--- NOTE | 2022-05-14 08:37 | Orthopedic Consultation ---
Date of Consultation May 14, 2022 Assessment & Plan (1) Spinal stenosis at L4-L5 level: I was able to review his x-rays and his MRI and his CAT scan of the lumbar spine. He demonstrates multilevel degenerative changes some small disc protrusions at L2-L3 L3-L4. I am underwhelmed with the amount of neural compression at these levels. However at L4-L5 he does have evidence of stenosis marked facet hypertrophy and degenerative change. There is a hint of anterolisthesis on his x-rays. I suspect this is the primary etiology of his pain. At this point I would like to have him undergo a trial of interventional pain management. Hopefully we can avoid any surgical intervention at this time. History of Present Illness Reason for Consultation: Back and right leg pain Attending Physician: Matheus Suazo MD History of Present Illness This is a 66-year-old male who presents with worsening back and right leg symptoms. Apparently this was exacerbated over the past day as he was doing some activities around his home. His longstanding history of back issues. He states he had to retire early in 2007 from [employer] secondary to his back. He is not undergone any recent physical therapy or injections to his back. He describes most of his pain today involving the right lumbar spine rating into the right buttock. There are some numbness in his thighs bilaterally. He is comfortable in bed. He denies any weakness. Allergies Allergy/AdvReac Type Severity Reaction Status Date / Time infliximab Allergy Intermediate REMICADE---Redness, Verified 05/13/22 19:33 Itching, Hives Home Medications Medication Instructions Recorded Confirmed Type pantoprazole 40 mg tablet,delayed 40 mg PO QAM 12/15/21 05/13/22 History release atorvastatin 20 mg tablet 20 mg PO QPM #90 tabs 04/07/22 05/13/22 Rx tofacitinib 5 mg tablet (Xeljanz) 5 mg PO BID #180 tabs 04/21/22 05/13/22 Rx amlodipine 5 mg-olmesartan 20 mg 1 tab PO DAILY #90 tabs 04/30/22 05/13/22 Rx tablet cyclobenzaprine 5 mg tablet 5 mg PO TID PRN muscle spasm #60 04/30/22 05/13/22 Rx tabs Medical Cannabis 1 dose inhalation HS 05/13/22 05/13/22 History gabapentin 100 mg capsule 100 mg PO BID 05/13/22 05/13/22 History Patient History Medical History (Updated 05/13/22 @ 21:21 by Virginia Mazariegos DO) Chronic back pain Chronic obstructive pulmonary disease mild, no inhaler Dyslipidemia per records History of antinuclear antibodies History of COVID-19 05/2021 treated at [facility] with monoclonal antibody IV infusion Hx of cataract bilat. Medical marijuana use Obesity Prediabetes Ulcerative colitis Surgical History H/O colonoscopy (10/2016) History of colonoscopy (01/09/20) Dr. Brar, napoles ulcerative colitis with inflammation from rectum to cecum, mild. Repeat recommended 2 years History of esophagogastroduodenoscopy (EGD) (01/2014) History of repair of left rotator cuff History of repair of right rotator cuff History of tooth extraction Hx of cataract extraction Lt. S/P right knee arthroscopy Family History Father Diabetes Family history of diabetes mellitus Brother Family history of diabetes mellitus Brother Family history of diabetes mellitus Other No family history of adverse response to anesthesia Ulcerative colitis Denies family history of Ovarian cancer Prostate cancer Crohn's disease Myocardial infarction Breast cancer Lung cancer Colorectal cancer Social History Smoking Status: Never smoker Tobacco Type: E-cigarettes / Vaping Age Started Using Tobacco: 17; Age Quit Using Tobacco: 52; packs per day: 1; Years Smoked: 35; Cigarettes Per Day: 20/day; Number of Years Since Quit: 12; Second Hand Exposure: No; Hx Alcohol Use: Yes Alcohol type: hard liquor Alcohol Intake Frequency: Monthly or Less Hx Substance Use: Yes Last Used Substance: Hours (ago) Last Used Substance Other:: Patient reports using medical marijuana every night. 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 He does exhibit plus out of 5 bilateral plantar flexion dorsiflexion sensory intact. Results & Data ([facility]) Vital Signs (Past 12 Hours) Vital Signs Temp Pulse Resp BP BP Pulse Ox O2 Del Method 05/14/22 07:38 36.6 C 93 H 18 151/82 H 94 Room Air 05/13/22 22:35 36.5 C 102 H 16 158/98 H 94 Room Air
[2022-05-14] MEDS ORDERED: amLODIPine BESYLATE 5 MG TAB PO SCH (09:00)
[2022-05-14] MEDS: GABAPENTIN 100 MG CAP PO SCH ×2 (09:22→20:15)
[2022-05-14] MEDS: PANTOprazole 40 MG TAB PO SCH (09:22)
[2022-05-14] MEDS ORDERED: CYCLOBENZAPRINE HCL 5 MG TAB PO PRN (16:05)
--- NOTE | 2022-05-14 16:05 | Hospitalist Progress Note ---
Date of Service May 14, 2022 Assessment & Plan (1) Intractable back pain: Plan: 66yo male with history of HTN, GERD, UC on Xeljanz presenting with acute on chronic back pain with radicular symptoms, diminished reflexes noted on RLE, MRI of the lumbar spine shows left L2 nerve root compression similar to prior CT from 01/2022 and worsening central canal stenosis at L4-L5, minimal superior endplate compression of <20% with mild marrow edema. Patient has has been evaluated by Spine surgery, who wants conservative pain management for now. However, patient is angry and frustrated that he is not going to have surgery -Pain management has been consulted (2) Hypertension: Plan: Blood pressure presently 156/96 -Pain control -Continue Amlodipine 5mg po daily -Will hold Olmesartan for now for possible surgical intervention -Monitor BP (3) Dyslipidemia: Plan: Chronic. -Continue Atorvastatin 20mg po daily (4) Diabetes mellitus: Plan: Diet controlled -Monitor (5) GERD without esophagitis: Plan: Chronic. Symptoms well controlled -Continue Protonix 40mg po daily (6) Ulcerative colitis: Plan: Chronic -Patient is on Xeljanz. Will hold for now for possible surgery Plan continue hospitalization for pain control Admission and Anticipated Discharge Date Admission Date: May 13, 2022 Subjective patient seen and examined, still in a lot of pain and frustrated that his back pain would be managed conservatively for now Review of Systems Review of Systems: All systems reviewed are negative, apart from the ones contained in the history. Physical Exam Physical Exam: The patient is awake, alert and oriented 3, well developed and well nourished, normocephalic and atraumatic, lying in bed and in no acute distress. HEENT--PERRL, EOMI, mucous membranes and oropharynx mildly dry Neck--supple. No JVD. No bruits. Thyroid normal, trachea midline, no adenopathy. Heart--normal S1 and S2. No murmurs, rubs or gallops. Lungs--clear bilaterally, no respiratory distress, no accessory muscle use. Abdomen--normal bowel sounds and soft. Mild epigastric and left sided abdominal pain Extremities--no cyanosis or clubbing. No edema. Dermatologic--normal skin turgor, normal color, no abnormal lymph nodes, no rash. Neurologic--cranial nerves II through XII grossly intact. Rheumatologic--normal range of motion. Psychiatric--normal affect. Results & Data Results & Data ([facility]) Vital Signs (Past 12 Hours) Vital Signs Temp Pulse Resp BP BP Pulse Ox O2 Del Method 05/14/22 15:42 98.2 F 97 H 18 156/96 H 94 Room Air 05/14/22 07:38 97.9 F 93 H 18 151/82 H 94 Room Air PG Care Time/CCT Total # of Minutes Spent Total Time Spent with Patient: Total time spent is greater than 50% in coordination of care (as documented) at patient's floor/unit and/or counseling patient: Coding Level of Care Code 07546 Subseq Hosp Care Lvl 2 Diagnoses Intractable back pain M54.9 Hypertension I10 Dyslipidemia E78.5 Diabetes mellitus E11.9 GERD without esophagitis K21.9 Ulcerative colitis K51.90 Time Spent (min) 35
[2022-05-14] MEDS ORDERED: ATORVASTATIN 20 MG TAB PO SCH (21:00)
[2022-05-14] MEDS ORDERED: MEDICAL CANNABIS INH SCH (21:00)
[2022-05-15] MEDS: ACETAMINOPHEN 500 MG TAB PO SCH ×2 (01:06→08:23)
[2022-05-15 06:40] LABS: Hematocrit (blood only) 41.9 % (40.1-51.0); Hemoglobin 14.2 g/dl (14.0-18.0); Mean Corpuscular Hemoglobin 30.7 pg (25.0-34.0); Mean Corpuscular Hgb Conc 33.9 g/dL (32.0-36.0); Mean Corpuscular Volume 90.7 fL (80.0-100.0); Mean Platelet Volume 10.2 fL (9.4-12.4); Platelet Count 267 K/uL (130-400); RDW Coefficient of Variation 13.2 % (11.5-14.5); RDW Standard Deviation 44.5 fL (36.4-46.3); Red Blood Count 4.62 M/uL (4.63-6.08); White Blood Count 9.72 K/ul (4.8-10.8)
[2022-05-15 07:00] LABS: BUN Creatinine Ratio 31.6 (10-20); Calcium 8.9 mg/dl (8.5-10.1); Creatinine Clr Calc Pharmacy 74.8 ml/min; Est GFR (African American) 73.8 ml/min; Est GFR (Non-African American) 63.7 ml/min
[2022-05-15] MEDS ORDERED: HYDROCODONE/ACETAMOPHEN 5/325MG TAB PO PRN (08:18)
[2022-05-15] MEDS: PANTOprazole 40 MG TAB PO SCH (08:23)
[2022-05-15] MEDS: LIDOCAINE 5% 1 PATCH TD SCH (08:24)
[2022-05-15] MEDS ORDERED: methylPREDNISolone 4 MG TAB, 6 DAY TAPER PO SCH (08:30)
--- NOTE | 2022-05-15 08:32 | Pain Management Consultation ---
Date of Consultation May 15, 2022 Assessment & Plan (1) Spinal stenosis at L4-L5 level: (2) Closed compression fracture of L4 vertebra: Encounter type: initial encounter Qualified Code(s): S32.040A - Wedge compression fracture of fourth lumbar vertebra, initial encounter for closed fracture (3) Intractable back pain: (4) Ulcerative colitis: Plan 1. Interventional treatment options were discussed at length. Patient was agreeable to pursuing lumbar SHER. We will plan to pursue an L4-5 interlaminar SHER. This will be completed in the outpatient setting at [facility] pain clinic on Wednesday. Time will be confirmed and preprocedural instructions will be given to the patient. 2. Will initiate Medrol Dosepak 3. Will discontinue cyclobenzaprine and initiate baclofen scheduled dosing 10 mg twice daily 4. Progress gabapentin to 300 mg twice daily 5. Patient may utilize hydrocodone 5/325 mg 1 tablet p.o. every 4 hours as needed for breakthrough pain. Consider discharge with small prescription for hydrocodone for outpatient utilization pending SHER 6. Patient will follow-up in outpatient pain clinic for lumbar SHER with further recommendations pending results Thank you for allowing us to participate in the care of Mr. Daley. History of Present Illness Reason for Consultation: Intractable low back pain with neurogenic claudication Requesting Physician: Armando Cavanaugh DO Attending Physician: Matheus Suazo MD History of Present Illness Mr. Daley is a 66-year-old obese white male who was admitted due to intractable low back pain with radiation into the left and right lateral and anterior thigh. Patient reports a history of chronic low back pain since approximately 2005 timeframe without known injury. His pain has been increased in frequency and severity over the past 3-4 months. Patient indicates his pain is 70% axial and 30% radicular. Patient describes the pain as aching, sharp and episodically spasming. He does describe some tingling and burning sensation in the left greater than right lateral and anterior thigh typically stopping level the knee. He denies radicular pain or paresthesia below the knee. Denies bowel or bladder incontinence or saddle anesthesia. He does report some generalized w eakness of the lower extremities with ambulatory activities. He reports limitations in his ability complete ADL activities due to his pain and discomfort. He denies immediate relief with sitting. He has no significant interference of sleep quality or quantity due to his low back pain. Patient do es utilize medical marijuana at bedtime to help improve sleep quality and quantity associate with chronic low back pain and his ulcerative colitis. Patient remains on chronic Xeljanz therapy due to ulcerative colitis which has been well controlled with this therapy. Patient was evaluated Dr. Cavanaugh who deferred surgical intervention. Patient conservative management in the past has included physical therapy-uncertain as to timeframe per his report. Patient has been on gabapentin since January at 100 mg twice daily without benefit. He finds minimal relief from cyclobenzaprine. He has minimal discomfort when lying in a still position. Patient has no further constitutional complaints. Plan of care discussed with Dr. Barbara Thomson. Pain Assessment Full Body Front + Back: 1. Axial lumbosacral spine 2. Right lateral/anterior thigh with pain and paresthesia 3. Left anterior/medial thigh with pain and paresthesia Pain scale - at its best (0-10): 1 Pain scale - at its worst (0-10): 7 Allergies Allergy/AdvReac Type Severity Reaction Status Date / Time infliximab Allergy Intermediate REMICADE---Redness, Verified 05/13/22 19:33 Itching, Hives Home Medications Medication Instructions Recorded Confirmed Type pantoprazole 40 mg tablet,delayed 40 mg PO QAM 12/15/21 05/13/22 History release atorvastatin 20 mg tablet 20 mg PO QPM #90 tabs 04/07/22 05/13/22 Rx tofacitinib 5 mg tablet (Xeljanz) 5 mg PO BID #180 tabs 04/21/22 05/13/22 Rx amlodipine 5 mg-olmesartan 20 mg 1 tab PO DAILY #90 tabs 04/30/22 05/13/22 Rx tablet cyclobenzaprine 5 mg tablet 5 mg PO TID PRN muscle spasm #60 04/30/22 05/13/22 Rx tabs Medical Cannabis 1 dose inhalation HS 05/13/22 05/13/22 History gabapentin 100 mg capsule 100 mg PO BID 05/13/22 05/13/22 History Pain History Pain Intensity Pain scale - at its best (0-10): 1 Pain scale - at its worst (0-10): 7 Patient History Medical History (Updated 05/13/22 @ 21:21 by Virginia Mazariegos DO) Chronic back pain Chronic obstructive pulmonary disease mild, no inhaler Dyslipidemia per records History of antinuclear antibodies History of COVID-19 05/2021 treated at [facility] with monoclonal antibody IV infusion Hx of cataract bilat. Medical marijuana use Obesity Prediabetes Ulcerative colitis Surgical History H/O colonoscopy (10/2016) History of colonoscopy (01/09/20) Dr. Brar, napoles ulcerative colitis with inflammation from rectum to cecum, mild. Repeat recommended 2 years History of esophagogastroduodenoscopy (EGD) (01/2014) History of repair of left rotator cuff History of repair of right rotator cuff History of tooth extraction Hx of cataract extraction Lt. S/P right knee arthroscopy Family History Father Diabetes Family history of diabetes mellitus Brother Family history of diabetes mellitus Brother Family history of diabetes mellitus Other No family history of adverse response to anesthesia Ulcerative colitis Denies family history of Ovarian cancer Prostate cancer Crohn's disease Myocardial infarction Breast cancer Lung cancer Colorectal cancer Social History Smoking Status: Never smoker Tobacco Type: E-cigarettes / Vaping Age Started Using Tobacco: 17; Age Quit Using Tobacco: 52; packs per day: 1; Years Smoked: 35; Cigarettes Per Day: 20/day; Number of Years Since Quit: 12; Second Hand Exposure: No; Hx Alcohol Use: Yes Alcohol type: hard liquor Alcohol Intake Frequency: Monthly or Less Hx Substance Use: Yes Last Used Substance: Hours (ago) Last Used Substance Other:: Patient reports using medical marijuana every night. Preferred Language: Luxembourgish Communication Ability: Effective Visual Impairment: Limited Hearing Ability: Normal Sash Maker Required: No Beliefs That Will Affect Care: None marital status: Current Living Situation: Spouse current occupational status: retired Feels Safe at Home: No Is there a partner from a previous relationship who is making you feel unsafe now?: No Childhood Exposure to Second-Hand Smoke: Yes caffeine: Yes during the past year weight has: remained stable Dental Care, Regularly: No Physical Activity Frequency: Daily Seatbelt Use: always Sunscreen Use: Yes Assistive Devices: Cane Physical Exam Physical Exam: General: Patient lying quietly in exam room in no acute distress. Speech and thought process appropriate. Mood and affect appropriate. Cognition intact. Patient obese and physically deconditioned. Head: Normocephalic and atraumatic. ENT: No evidence of nasal or oral mucosal lesions. Mucous membranes are moist. Eyes: Pupils equal round reactive to light. Neck: Supple without adenopathy and full range of motion. Abdomen: Soft and nondistended. No organomegaly. Bowel sounds active. Back/spine: Patient able to sit up and logroll towards his left side for examination without limitation. Patient has generalized tenderness over the lumbosacral region with slightly hyperalgesic response. He has no focal midline, facet joint or SI joint tenderness. Lower extremities: SLR negative bilaterally slight increase in axial pain. Hips nontender with internal/external rotation bilaterally. Increased axial pain with reported spasm was appreciated with hip maneuvering. Sensation was intact to sharp and dull distally. Strength testing 4+/5 with dorsiflexion, plantarflexion and hip flexion/extension. No appreciable edema in the foot or ankle region. Neurologic: Cranial nerves grossly intact. Ambulatory function not witnessed. Results (Pain Clinic) Diagnostic Review MRI Findings: [facility], [place] [phone] Magnetic Resonance Report Patient:ANNA DALEY Admit Date:05/13/22 MR#:[id number] Address1:[address] [place] [address] Acct ID:[id number] Address2: Date:1955 [facility] Zip:[place] [address] Age:66 Location:ED Sex:M Room/Bed: Att Phy: Diagnosis:BACK PAIN; CAN BARELY WALK Yesi Phy:Slick Dunham DO Service Date:05/13/22 [facility] Phy: Interpreting Phy:Neno FlynnAdmit Phy: Ordering Phy:Jose Hicks PA cc: ~ MR lumbar spine wo con CLINICAL HISTORY: 66 years-old Male with severe lumbar pain, known herniations, worsening. Acute severe low back pain with lower extremity radicular symptoms. COMPARISON: Lumbar spine radiographs of same day, CT lumbar spine 01/29/2022, lumbar spine MRI 01/20/2016. TECHNIQUE: Multiplanar, multi sequence MRI of the lumbar spine was performed without intravenous contrast. FINDINGS: The electrician bus localizer images demonstrate no gross extraspinal abnormality. 5.0 cm T2 hyperintense lesion of the right kidney is suggestive of a probable cyst. The study is mildly motion degraded. No paravertebral edema, endplate erosion or destructive bone lesion are identified. The conus medullaris terminates at the L1 level. Normal signal within the imaged thoracic spinal cord. There is minimal superior endplate compression of the L4 vertebral body with less than 20% with mild marrow edema. T12-L1: Mild facet arthrosis. No central canal or neural foraminal stenosis. L1-L2: Mild facet arthrosis. No central canal or neural foraminal stenosis. L2-L3: Mild intervertebral disc space narrowing with spondylitic spurring and small circumferential annular disc bulge. Ligamentum flavum thickening with mild to moderate facet arthrosis. Flattening of the ventral thecal sac without significant central canal stenosis. Left foraminal/far lateral disc protrusion redemonstrated resulting in mild left foraminal narrowing, likely causing mass effect upon the exiting L2 nerve root. This finding is unchanged from the comparison CT study. The right neural foramen is patent. L3-L4: Mild intervertebral disc space narrowing with spondylitic spurring and small circumferential annular disc bulge with posterior disc osteophyte complex, eccentric to the left. Mild to moderate right with moderate left lateral recess narrowing. There is abutment with slight posterior displacement of the left L4 nerve root. Ligamentum flavum thickening with moderate facet arthrosis. The central canal and right neural foramen are patent. Mild to moderate left neural foraminal narrowing, progressed from the prior MRI. L4-L5: Disc desiccation with mild intervertebral disc space narrowing and spondylitic spurring. Small circumferential annular disc bulge with posterior disc osteophyte complex. Left foraminal/far lateral annular fissure. Ligamentum flavum thickening with severe facet arthrosis. Moderate to severe central canal stenosis, AP dimension of the thecal sac measuring 6 mm. There is at least moderate narrowing of the right greater than left lateral recesses. Mild to moderate bilateral foraminal narrowing. These findings have progressively worsened from the prior study. L5-S1: Mild spondylitic spurring with moderate facet arthrosis. No central canal or neural foraminal stenosis. IMPRESSION: 1. Discogenic degeneration with spondylitic spurring and facet arthrosis as above. 2. Left foraminal/far lateral disc protrusion at L2-L3 is redemonstrated resulting in mild left foraminal narrowing with mass effect upon the exiting L2 nerve root. These findings appear similar to the 01/29/2022 CT study. 3. Moderate to severe central canal stenosis at L4-L5 has progressively worsened from the 01/20/2016 study. 4. Minimal superior endplate compression of less than 20% at L4 with mild marrow edema, likely subacute. ACT 112: Negative or not required by law. The above report was generated using voice recognition software. It may contain grammatical, syntax or spelling errors. Dictated: 05/13/2022 4:46 PM Transcribed: 05/13/2022 5:20 PM Rissa [id number] Electronically signed by: Neno Flynn M.D. 05/13/2022 5:45 PM Dictated:05/13/22 1646 Transcribed: 05/13/22 1720 Radiology Findings: [facility], [place] [phone] XRay Report Patient:ANNA DALEY Admit Date:05/13/22 MR#:[id number] Address1:[address] [place] [address] Acct ID:[id number] Address2: Date:1955 [facility] Zip:[place] [address] Age:66 Location:ED Sex:M Room/Bed: Att Phy: Diagnosis:BACK PAIN; CAN BARELY WALK Yesi Phy:Slick Dunham DO Service Date:05/13/22 Fam Phy: Interpreting Phy:Neno FlynnAdmit Phy: Ordering Phy:Jose Hicks PA cc: ~ XR lumbar spine 2-3V HISTORY: 66 years-old Male known lumbar pathology, flare of pain chronic low back pain COMPARISON: CT lumbar spine 01/29/2022, chest CT 03/06/2022. TECHNIQUE: 3 views of the lumbar spine FINDINGS: Demineralized appearance of the bones. Cholelithiasis. Unremarkable soft tissues. Atherosclerosis of the aorta with fusiform and minimal dilation, 3.2 cm. No acute fracture, subluxation or endplate erosion. Minimal intervertebral disc space narrowing and spondylitic spurring with moderate facet arthrosis. IMPRESSION: 1. No acute fracture or subluxation. 2. Cholelithiasis. 3. Atherosclerosis with unchanged mild aneurysmal dilation of the abdominal aorta. ACT 112: Negative or not required by law. The above report was generated using voice recognition software. It may contain grammatical, syntax or spelling errors. Electronically signed by: Neno Flynn M.D. 05/13/2022 1:01 PM Dictated:05/13/22 1259 Transcribed: 05/13/22 1259
[2022-05-15] MEDS ORDERED: BACLOFEN 10 MG TAB PO SCH (09:00)
[2022-05-15] MEDS ORDERED: amLODIPine BESYLATE 5 MG TAB PO SCH (09:00)
[2022-05-15] MEDS ORDERED: GABAPENTIN 300 MG CAP PO SCH (09:00)
[2022-05-15] MEDS ORDERED: methylPREDNISolone 4 MG TAB PO SCH ×2 (13:00→21:00)
--- NOTE | 2022-05-15 14:26 | Discharge Summary ---
Date of Service May 15, 2022 Admission HPI Per Admitting Provider Isauro Costello is a 66yo male with history of mild COPD, HLP and Ulcerative colitis on Xeljanz presenting with acute worsening of chronic back pain. Patient had an injury at work many years ago and has some chronic back pain - mostly on left side. He has seen Dr. Cavanaugh in the past. He was recently started on Gabapentin 100mg po TID and Flexeril PRN for sciatic pain and had a consultation for PT placed. He has had acute worsening of his back pain over the last 4-5 days. Pain is now worse on the right side - lumbar pain with radiation into the buttock, anterior and lateral thigh to his knee. He has the feeling of restlessness and formication in his left leg which is baseline for him. Pain is severe, patient with difficulty with ambulation. He has been taking his Gabapentin, Flexeril and Hydrocodone with minimal relief. He denies fall or trauma. No fever, chills. He did note some mild increase in urinary frequency today as well as some possible retention - feeling of incomplete emptying. No bowel complaints. He does report progressive bilateral LE weakness over the last several months. Patient had a CT of the lumbar spine performed on 01/29/22 which revealed a large left lateral disc extrusion at L2-L3 with possible impingement on the left L2 nerve root as well as a right lateral disc extrusion at L4-L4 with possible impingment on the exiting L4 nerve root. In the ER patient is afebrile, HD stable, NAD. He is resting on his left side in bed. Uncomfortable but in NAD. ER course: Lidocaine patch, Valium 5mg PO, Toradol 15mg IV, Dilaudid 1mg IV x 2 doses, Dexamethasone 10mg IV Principal Diagnosis back pain Discharge Exam The patient is awake, alert and oriented 3, well developed and well nourished, normocephalic and atraumatic, lying in bed and in no acute distress. HEENT--PERRL, EOMI, mucous membranes and oropharynx mildly dry Neck--supple. No JVD. No bruits. Thyroid normal, trachea midline, no adenopathy. Heart--normal S1 and S2. No murmurs, rubs or gallops. Lungs--clear bilaterally, no respiratory distress, no accessory muscle use. Abdomen--normal bowel sounds and soft. Mild epigastric and left sided abdominal pain Extremities--no cyanosis or clubbing. No edema. Dermatologic--normal skin turgor, normal color, no abnormal lymph nodes, no rash. Neurologic--cranial nerves II through XII grossly intact. Rheumatologic--normal range of motion. Psychiatric--normal affect. Discharge Data Allergies Allergy/AdvReac Type Severity Reaction Status Date / Time infliximab Allergy Intermediate REMICADE---Redness, Verified 05/13/22 19:33 Itching, Hives Consultations 05/13/22 22:44 Consult Orthopedic Surgery Routine 05/14/22 08:34 Consult Pain Management Routine Ordered Studies 05/13/22 13:30 MRI Lumbar Spine [MR lumbar spine wo con] Stat Hospital Course (1) Intractable back pain: 66yo male with history of HTN, GERD, UC on Xeljanz presenting with acute on chronic back pain with radicular symptoms, diminished reflexes noted on RLE, MRI of the lumbar spine shows left L2 nerve root compression similar to prior CT from 01/2022 and worsening central canal stenosis at L4-L5, minimal superior endplate compression of <20% with mild marrow edema. Patient has has been evaluated by Spine surgery, who wants conservative pain management for now. -Pain management has been consulted, recommend outpatient follow up for injections -d/c on hydrocodone , medrol dose pack, baclofen, Gabapentin (2) Hypertension: Blood pressure presently 110/80 -Pain control -Continue Amlodipine 5mg po daily -Will hold Olmesartan for now for possible surgical intervention -Monitor BP (3) Dyslipidemia: Chronic. -Continue Atorvastatin 20mg po daily (4) Diabetes mellitus: Diet controlled -Monitor (5) GERD without esophagitis: Chronic. Symptoms well controlled -Continue Protonix 40mg po daily (6) Ulcerative colitis: Chronic -Patient is on Xeljanz. Will hold for now for possible surgery Plan continue hospitalization for pain control Total Time Total Time Spent Total Time Spent (In Minutes): 35 Discharge Plan Discharge Items Patient Disposition: Home - Self-Care Reason For Visit: BACK PAIN Discharge Diagnosis: back pain Condition on Discharge: Fair Activity: Per Instructions section Activity Comment: activity as tolerated Non-emergency contact: Primary Care Provider and Pain Management Call non-emergency contact if: you have any medication questions Follow-up/Referrals: Slick Dunham DO [Primary Care Provider] - 05/19/22 1:00 pm Diet: Regular Addtl Attending Provider Instructions: please make appointment to follow up with pain management and also spine surgeon Pending Studies at Discharge: No Stand-Alone Forms: My [facility], Smoking Cessation Medications and DC Order Prescriptions: Continued atorvastatin 20 mg tablet 20 mg PO QPM Qty: 90 3RF Xeljanz 5 mg tablet 5 mg PO BID Qty: 180 3RF cyclobenzaprine 5 mg tablet 5 mg PO TID PRN (Reason: muscle spasm) Qty: 60 0RF amlodipine-olmesartan 5-20 mg tablet 1 tab PO DAILY Qty: 90 2RF pantoprazole 40 mg tablet,delayed release (DR/EC) 40 mg PO QAM Rx Instructions: TAKE 1 TABLET DAILY Medical Cannabis 1 dose inhalation HS Rx Instructions: VAPS gabapentin 100 mg capsule 100 mg PO BID Discharge Orders: Discharge Order (Routine); Ordered 05/15/22 Ordered By: Matheus Suazo Admission Data Admit Date/Time: 05/13/22 19:37 Attending Provider: Matheus Suazo Admit Provider: Virginia Mazariegos Primary Care Provider: Slick Dunham Other Providers: Armando Cavanaugh ; Barbara Thomson Other Interventions: Discharge Summary Assessment (RN) Last Done: 05/15/22 10:29 Coding Level of Care Code D/C DAY MANAGEMENT >30 MINS Diagnoses Intractable back pain M54.9 Hypertension I10 Dyslipidemia E78.5 Diabetes mellitus E11.9 GERD without esophagitis K21.9 Ulcerative colitis K51.90 Time Spent (min) 35
[2022-05-16] MEDS ORDERED: methylPREDNISolone 4 MG TAB PO SCH ×2 (07:00→21:00)
[2022-05-17] MEDS ORDERED: methylPREDNISolone 4 MG TAB PO SCH (07:00)
[2022-05-18] MEDS ORDERED: methylPREDNISolone 4 MG TAB PO SCH (07:00)
[2022-05-19] MEDS ORDERED: methylPREDNISolone 4 MG TAB PO SCH (07:00)
[2022-05-20] MEDS ORDERED: methylPREDNISolone 4 MG TAB PO SCH (07:00)
== END 2022-05-15 11:30 | disposition home or self-care (01) | DRG 552 ==
LOC: ED 10:57 → 3W 19:37 → SUATTDRO 19:37 → 3W 22:27

== ENCOUNTER 2022-09-15 08:29 | Observation (INO) ==
--- NOTE | 2022-08-07 13:53 | PAT Medication Instructions ---
Medication Instructions Date of Service August 07, 2022 Home Medications Medication Instructions Recorded tofacitinib 5 mg tablet (Xeljanz) 5 mg PO BID #180 tabs 04/21/22 hydrocodone 5 mg-acetaminophen 325 1 tab PO Q8H PRN intractable back 05/19/22 mg tablet pain #30 tabs pantoprazole 40 mg tablet,delayed release 40 mg PO QAM tofacitinib 5 mg tablet (Xeljanz) 5 mg PO BID Medical Cannabis 1 dose inhalation HS PRN Sleep hydrocodone 5 mg-acetaminophen 325 mg tablet 1 tab PO Q8H PRN intractable back pain amlodipine 5 mg-olmesartan 20 mg tablet 1 tab PO QAM atorvastatin 20 mg tablet 20 mg PO HS ASK your prescriber and surgeon tofacitinib 5 mg tablet (Xeljanz) 5 mg PO BID DO NOT take the morning of surgery amlodipine 5 mg-olmesartan 20 mg tablet 1 tab PO QAM Take morning of surgery With a small sip of water, OTHERWISE NOTHING TO EAT OR DRINK AFTER MIDNIGHT: pantoprazole 40 mg tablet,delayed release 40 mg PO QAM hydrocodone 5 mg-acetaminophen 325 mg tablet 1 tab PO Q8H PRN intractable back pain (if needed) Take evening before surgery Medical Cannabis 1 dose inhalation HS PRN Sleep (if needed) hydrocodone 5 mg-acetaminophen 325 mg tablet 1 tab PO Q8H PRN intractable back pain (if needed) atorvastatin 20 mg tablet 20 mg PO HS Other Notes If you have any questions please call us at [phone] or [phone] or [phone] or [phone]
--- NOTE | 2022-08-11 09:41 | Anesthesiology Consultation ---
Date of Service August 11, 2022 Assessment & Plan (1) Encounter for pre-operative examination: - COVID screening: Per assessment on 08/11: No known COVID-19 positive contacts or current COVID-19 related symptoms. Travel screen negative. Patient vaccinated. At surgeon discretion if preop Covid testing being done. - Unable to void at PAT: Pt bringing urine sample to [facility] "this week" per PAT tech- awaiting UA results. Patient otherwise acceptable risk for surgery. Chart Review Chart Review: Patient seen in Pre Admission Testing Teaching & Discussion Pre-Anesthesia Teaching/Discussion Notes: Instructed NPO after midnight before surgery,except medications with 15 cc of water. Medication instructions provided according to the [facility] guidelines. History Surgery Operation Date: 09/01/22 11:55 Proposed Procedures p L3-L5 Decompression and Fusion, Spinal Cord Monitoring - Armando Cavanaugh, Height/Weight Height: 5 ft 10 in Weight: 110.8 kg Allergies Allergy/AdvReac Type Severity Reaction Status Date / Time infliximab Allergy Intermediate Remicade- Verified 08/10/22 09:33 Redness, Itching, Hives Medications Home Medications Medication Instructions Recorded Confirmed Last Taken pantoprazole 40 mg tablet,delayed 40 mg PO QAM 12/15/21 08/07/22 05/13/22 release tofacitinib 5 mg tablet (Xeljanz) 5 mg PO BID #180 tabs 04/21/22 08/07/2205/13 08:00 Medical Cannabis 1 dose inhalation HS PRN Sleep 05/13/22 08/07/22 05/12/22 hydrocodone 5 mg-acetaminophen 325 1 tab PO Q8H PRN intractable back 05/19/22 08/07/22 Unknown mg tablet pain #30 tabs amlodipine 5 mg-olmesartan 20 mg 1 tab PO QAM 08/07/22 08/07/22 Unknown tablet atorvastatin 20 mg tablet 20 mg PO HS 08/07/22 08/07/22 Unknown Past Medical History Medical History Chronic back pain Chronic obstructive pulmonary disease Stable Dyslipidemia per records GERD without esophagitis History of antinuclear antibodies History of COVID-19 05/2021 treated at [facility] with monoclonal antibody IV infusion Lumbar radiculopathy Mood disorder Obesity Prediabetes Pulmonary nodule monitoring, stable Seborrheic keratoses Spinal stenosis at L4-L5 level Ulcerative colitis Exercise / Class Metabolic Activity III < 4 Walking/Shop/Light housework Past Family History Family History Father Diabetes Family history of diabetes mellitus Brother Family history of diabetes mellitus Brother Family history of diabetes mellitus Other No family history of adverse response to anesthesia Ulcerative colitis Denies family history of Ovarian cancer Prostate cancer Crohn's disease Myocardial infarction Breast cancer Lung cancer Colorectal cancer Past Surgical History Surgical History History of colonoscopy History of esophagogastroduodenoscopy (EGD) (01/2014) History of repair of left rotator cuff History of repair of right rotator cuff History of tooth extraction Hx of cataract extraction R/L S/P right knee arthroscopy Past Anesthesia History No Hx of Anesthesia Complications and No Family Hx of Anesthesia Complications History of PONV No Hx of PONV and No Hx of Motion Sickness Social History Smoking Status: Former smoker tobacco type: cigarettes Do You Dip or Chew Tobacco: No Smoking End Date: Quit (hx 20 cigs/day) Hx Alcohol Use: Yes Alcohol type: hard liquor alcohol intake frequency: other (once or twice per year) Hx Substance Use: Yes (medical card) substance use type: marijuana (Medical marijuana (nightly- vape for pain/insomnia)) Last Used Substance: Hours (ago) Last Used Substance Other:: daily at night for sleep Review of Systems Patient denies chest pain, shortness of breath, fever, chills, cough, wheezing, palpitations. Physical Exam Vital Signs VITALS BP 115/77 P 85 TEMP 98.7 SP02 97%RA RESP 18 PHYSICAL Full cervical extension range of motion. Full TMJ range of motion. TMD 3 finger breaths Mallampati Score 2 Dentition: several missing (sides/molars) Lungs: clear throughout to auscultation Cardiac: regular rate and rhythm, no murmurs noted Spine: normal Carotid arteries: negative bruit Extremities: no edema Thick neck Lab Results Anesthesia Preop Results Results Anesthesia Widget: WBC 5.43 K/ul (4.8-10.8) 08/11/22 Hgb 14.1 g/dl (14.0-18.0) 08/11/22 Hct 41.8 % (42.0-52.0) L 08/11/22 Plt 248 K/uL (130-400) 08/11/22 Na 139 mmol/L (136-145) 08/11/22 K 4.0 mmol/L (3.5-5.1) 08/11/22 Cl 106 mmol/L (98-107) 08/11/22 CO2 28 mmol/L (21-32) 08/11/22 BUN 20 mg/dl (6-23) 08/11/22 Creat 1.06 mg/dl (0.6-1.4) 08/11/22 Glucose Level 165 mg/dl (70-99(Fasting)) H 08/11/22 PT 10.9 Seconds (9.0-12.0) 08/11/22 PTT 25.8 Seconds (21.0-31.0) 08/11/22 INR 1.0 (0.9-1.1) 08/11/22 Blood Type A Positive 08/11/22 Antibody Screen NEGATIVE 08/11/22 Testing Electrocardiogram Date: 08/11/22 NSR at 82bpm. Pulmonary Function Test Date: 04/02/22 Normal spirometry, lung volumes with diffusion capacity lower limits of normal not adjusted for hemoglobin. Compared to spirometry performed in 2016, FVC is reduced by 300 mL and FEV1 is improved by 100 mL. Other Testing Chest CT (03/06/22) Emphysema without acute intrathoracic abnormality. Spiculated suspicious subpleural solid nodule within the left upper lobe measuring up to 9 mm appears generally stable from the 11/24/2021 study. No lymphadenopathy. Hepatic steatosis with hepatomegaly. Cholelithiasis. COVID-19 Risk Screen Screening Information COVID-19 Screen Date: 08/11/22 Exposure 21 Days Family/Household +COVID Last 21 Days: No Exposure 10 Days Any COVID Exposure Last 10 Days: No Symptoms Last 10 Days Experienced COVID Sx Last 10 Days: No + COVID 0-90 Days COVID + in Last 0-90 Days: No
[~2022-09-15 08:29] MED LIST changes: +ACETAMINOPHEN 500 MG TAB PO SCH; -ADAL1KIT SC; +CeleBREX 200 MG CAP PO SCH; +GABAPENTIN 300 MG CAP PO SCH; -LIDOCAINE HCL 2% 2 ML VIAL (20MG/ML) ONE; +LR 15ML/HR IV SCH; -MIDAZOLAM HCL 1 MG/ML 2ML VIAL ONE; -MULT-506 PO; -ONDANSETRON INJ 2 MG/ML 2 ML VIAL ONE; -PANT40TA PO; -PROPOFOL IV EMULSION 10 MG/ML 20 ML VIAL IV ONE; -SYMIN160 INH; +ceFAZolin 2000MG 2,000 MG/15 ML SYR IV SCH
[2022-09-15] MEDS ORDERED: MIDAZOLAM HCL 1 MG/ML 2ML VIAL ONE (09:21)
[2022-09-15] MEDS ORDERED: DEXAMETHASONE SOD INJ 4 MG/ML VIAL ONE (09:22)
[2022-09-15] MEDS ORDERED: LARYING-O-JET KIT (LTA) ONE (09:22)
[2022-09-15] MEDS ORDERED: ROCURONIUM BROMIDE 10 MG/ML 5 ML VIAL IV ONE ×2 (09:22→11:46)
[2022-09-15] MEDS ORDERED: fentaNYL citrate PF 100 MCG/2 ML VIAL ONE (09:22)
[2022-09-15] MEDS ORDERED: ONDANSETRON INJ 2 MG/ML 2 ML VIAL ONE (09:22)
[2022-09-15] MEDS ORDERED: HYDROmorphone INJ 2 MG/ML SYR/VIAL ONE (09:23)
[2022-09-15] MEDS ORDERED: fentaNYL citrate PF 100 MCG/2 ML VIAL IV PRN (09:51)
[2022-09-15] MEDS ORDERED: ATROPINE SULFATE 0.1 MG/ML 10ML SYR IV PRN (09:51)
[2022-09-15] MEDS ORDERED: ONDANSETRON INJ 2 MG/ML 2 ML VIAL IV PRN ×2 (09:51→13:38)
[2022-09-15] MEDS ORDERED: ePHEDrine sulfate 50 MG/ML AMP IV PRN (09:51)
[2022-09-15] MEDS ORDERED: HYDROmorphone INJ 2 MG/ML SYR/VIAL IV PRN (09:51)
--- NOTE | 2022-09-15 10:07 | History & Physical Bridge Note ---
Date of Service September 15, 2022 History & Physical Bridge Note I have examined the patient, reviewed the History & Physical and in the interval since the performance of the History & Physical I have noted the following changes of clinical significance: no changes noted
--- NOTE | 2022-09-15 10:08 | History & Physical Report ---
Date of Service September 15, 2022 Assessment & Plan (1) Neurogenic claudication due to lumbar spinal stenosis: Plan: L3-L5 decompression and fusion History of Present Illness Chief Complaint: Back and leg pain Primary Care Provider: Slick Dunham DO This is a 67-year-old male who presents with chronic system back and leg pain after failing since course of nonoperative care is here for surgical invention. Allergies Allergy/AdvReac Type Severity Reaction Status Date / Time infliximab Allergy Intermediate Remicade- Verified 09/15/22 08:47 Redness, Itching, Hives Home Medications Medication Instructions Recorded Confirmed Type pantoprazole 40 mg tablet,delayed 40 mg PO QAM 12/15/21 09/15/22 History release tofacitinib 5 mg tablet (Xeljanz) 5 mg PO BID #180 tabs 04/21/22 09/15/22 Rx Medical Cannabis 1 dose inhalation HS PRN Sleep 05/13/22 09/15/22 History amlodipine 5 mg-olmesartan 20 mg 1 tab PO QAM 08/07/22 09/15/22 History tablet atorvastatin 20 mg tablet 20 mg PO HS 08/07/22 09/15/22 History Past Med/Surg History Medical History (Updated 09/15/22 @ 10:07 by Armando Cavanaugh DO) Chronic back pain Chronic obstructive pulmonary disease Stable Diabetes mellitus Per PCP records Dyslipidemia per records GERD without esophagitis History of antinuclear antibodies History of COVID-19 05/2021 treated at [facility] with monoclonal antibody IV infusion Lumbar radiculopathy Mood disorder Obesity Pulmonary nodule monitoring, stable Seborrheic keratoses Spinal stenosis at L4-L5 level Ulcerative colitis Surgical History History of colonoscopy History of esophagogastroduodenoscopy (EGD) (01/2014) History of repair of left rotator cuff History of repair of right rotator cuff History of tooth extraction Hx of cataract extraction R/L S/P right knee arthroscopy Family History Father Diabetes Family history of diabetes mellitus Brother Family history of diabetes mellitus Brother Family history of diabetes mellitus Other No family history of adverse response to anesthesia Ulcerative colitis Denies family history of Ovarian cancer Prostate cancer Crohn's disease Myocardial infarction Breast cancer Lung cancer Colorectal cancer Social History (Updated 08/18/22 @ 11:27 by Bella Tsang LPN) Smoking Status: Former smoker Tobacco Type: E-cigarettes / Vaping Age Started Using Tobacco: 17; Age Quit Using Tobacco: 52; packs per day: 1; Smoking End Date: Quit (hx 20 cigs/day); Second Hand Exposure: No; Do You Dip or Chew Tobacco: No; Tobacco Cessation Education Requested by Patient: No Hx Alcohol Use: Yes Alcohol type: hard liquor Alcohol Intake Frequency: Monthly or Less Hx Substance Use: Yes (medical card) Last Used Substance: Hours (ago) Last Used Substance Other:: daily at night for sleep Preferred Language: Pakistani Communication Ability: Effective Visual Impairment: Limited Hearing Ability: Normal Mud Jack Operator Required: No Beliefs That Will Affect Care: None marital status: Current Living Situation: Spouse current occupational status: retired Other Information That Helps Us Care for You: No Feels Safe at Home: Yes Safety Concerns: Feels Safe At This Time Childhood Exposure to Second-Hand Smoke: Yes caffeine: Yes during the past year weight has: remained stable Dental Care, Regularly: No Physical Activity Frequency: Daily Seatbelt Use: always Sunscreen Use: Yes Assistive Devices: Glasses Assistive Devices Comment: glasses prn Physical Exam Physical Exam: Patient is alert and oriented Heart regular rhythm Lungs clear Results & Data Results & Data ([facility]) Vital Signs (Past 12 Hours) Vital Signs Temp Pulse Resp BP Pulse Ox O2 Del Method 09/15/22 08:53 Room Air 09/15/22 08:53 36.7 C 85 20 142/93 H 95 Room Air
[2022-09-15] MEDS ORDERED: ceFAZolin 330 MG/ML 1 GM VIAL ONE (10:46)
[2022-09-15] MEDS ORDERED: BUPIVACAINE/EPINEPHRINE 0.25% 1:200,000 30 ML VIAL ONE (10:46)
[2022-09-15] MEDS ORDERED: FLOSEAL HEMOSTATIC MATRIX 10ML TOP ONE (11:40)
[2022-09-15] MEDS ORDERED: ceFAZolin 2000MG 2,000 MG/15 ML SYR IV ONE (11:40)
[2022-09-15] MEDS ORDERED: ePHEDrine sulfate 50 MG/ML SYR ONE (11:45)
[2022-09-15] MEDS ORDERED: SUGAMMADEX SODIUM 200 MG/2 ML VIAL IV ONE (11:45)
[2022-09-15] MEDS ORDERED: PHENYLEPHRINE 100MCG/ML 5ML SYR ONE (11:45)
[2022-09-15] MEDS ORDERED: PHENYLEPHRINE HCL 10 MG/ML VIAL ONE (12:41)
--- NOTE | 2022-09-15 13:33 | Operative Report ---
Post Operative Report Pre & Post Diagnosis Operation Date: 09/15/22 09:55 Pre-Op Diagnosis: Spondylolisthesis, Lumbar Region Lumbar spinal stenosis with neurogenic claudication Post-Op Diagnosis: Same I identified the patient and participated in the time-out.: Yes Procedure Operation Date: 09/15/22 09:55 Actual Procedures #1 lumbar decompression bilateral medial facetectomies and foraminotomies L2-L3, L3-L4 and L4-L5. #2 posterior spinal fusion L3-L5. #3 placed posterior instrumentation L3 L5. #4 interbody fusion L3-L4 L4-5 per #5 placement of Spira 14 x 26 mm cage at L3-L4 and 15 x 26 mm cage at L4-L5. 6 placement locally harvested morselized autograft in the posterior gutters. #7 placement of I factor amount of the test and interbody space and posterior gutters. Surgeon Armando Cavanaugh, [employer] Foreman Fide Larsen Estimated Blood Loss 200 Findings See Below The patient is 5 foot 10 weighing over 110 kg with a BMI in excess of 34.. Patient's body habitus did add considerable slight technical difficulty required deepest retractors and longer instruments in order to perform his procedure. This at least 50% increased operative time. Specimens None Indications This is a 67-year-old male who presents above-mentioned diagnosis after failed course of nonoperative care is here for surgical invention. Description of Procedure Patient was met with identified informed consent obtained. Patient was then taken to the operative suite underwent a patient placed in a prone position the [place] table top Livan frame. All bony prominences well-padded eyes inspected to ensure no external pressure placed upon up at this point the lumbar spine was prepped and draped in normal sterile fashion. Sharp dissection with the assistance of Bovie cautery was performed down to and exposing the lamina and transverse processes of L3 L4-5. From caudal to cephalad fashion complete laminectomy of L4 L3 partial laminectomy of L2 was performed including bilateral medial facetectomies and foraminotomies addressing severe spinal stenosis. There is also evidence of acute disc herniation L3-L4 on the left and this was removed as well. Pedicle screws then placed in L3-L4-L5 and S1 levels bilaterally with assistance of fluoroscopy and the properly sized olman placed. Bilateral transforaminal approach on the left P discectomy of L4-L5 was performed endplates curetted to subcortically bone and a 15 x 26 mm Spira cage with I factor tapped in position. Then proceeded to L3 L4 [address] of a trans foraminal approach and left pleat discectomy performed endplates curetted to subcortical bleeding bone and a 14 x 26 mm Spira cage with I factor tapped the position. The rods then locked in final position bilaterally. The transverse processes of L3 L4-5 burred to subcortically and bone. I factor bone of the test and locally harvested morselized autograft was placed in the posterior gutters. 15 round TAYLER drain inserted. The incision was then closed with 1 Vicryl the fascia 2-0 Vicryl subcutaneously and 4 Monocryl for final skin closure. Steri-Strip sterile dressings placed. Patient awakened and taken to PACU in stable condition. Please note spinal cord monitoring was utilized at the procedure no changes noted. Lastly Brisa Larsen was present at the entire procedure and while the patient positioning complex portions of the surgery and final skin closure. I attest to the content of the Intraoperative Record and any orders documented therein. Any exceptions are noted below.
[2022-09-15] MEDS ORDERED: DO NOT ADMINISTER PNEUMOCOCCAL VACCINE PRN (13:38)
[2022-09-15] MEDS ORDERED: PROMETHAZINE HCL 12.5 MG in SODIUM CHLORIDE 0.9% 50 ML IV PRN (13:38)
[2022-09-15] MEDS ORDERED: METOCLOPRAMIDE HCL INJ 5 MG/ML 2 ML VIAL IV PRN (13:38)
[2022-09-15] MEDS ORDERED: SOD PHOSPHATE/SOD BIPHOSPHATE ENEMA 132 ML BTL PR PRN (13:38)
[2022-09-15] MEDS ORDERED: diphenhydrAMINE Capsule 25 MG CAP PO PRN (13:38)
[2022-09-15] MEDS ORDERED: traMADol HCL 50 MG TABLET PO PRN (13:38)
[2022-09-15] MEDS ORDERED: FAMOTIDINE 20 MG TAB PO PRN (13:38)
[2022-09-15] MEDS ORDERED: ALUMINUM/MAGNESIUM SUSP 30 ML UDC PO PRN (13:38)
[2022-09-15] MEDS ORDERED: DO NOT ADMINISTER FLU VACCINE PRN (13:38)
[2022-09-15] MEDS ORDERED: LORazepam 2 MG/1 ML VIAL IV PRN (13:38)
[2022-09-15] MEDS ORDERED: ONDANSETRON 4 MG OD TAB PO PRN (13:38)
[2022-09-15] MEDS ORDERED: hydrOXYzine HCl 25 MG TAB PO PRN (13:38)
[2022-09-15] MEDS ORDERED: MAGNESIUM HYDROXIDE SUSP 30 ML UDC PO PRN (13:38)
[2022-09-15] MEDS ORDERED: NALOXONE HCL 0.4 MG/1 ML VIAL/CARP IV PRN (13:38)
[2022-09-15] MEDS ORDERED: MEDICAL CANNABIS INH PRN (13:38)
[2022-09-15] MEDS ORDERED: HYDROmorphone INJ 0.5 MG/0.5 ML SYR IV PRN (13:38)
[2022-09-15] MEDS ORDERED: bisacodyL 10 MG SUPP PR PRN (13:38)
--- NOTE | 2022-09-15 13:56 | Fluoroscopy Report ---
INTRAOPERATIVE RADIOGRAPHS CLINICAL HISTORY: L3-L5 spinal fusion. Fluoro time: 28 seconds Exposure: 20.91 mGy FINDINGS: 2 spot fluoroscopic views of the lumbar spine are presented. There has been discectomy at L 3-L4 and L4-L5 with laminectomy and posterior fusion at L3-L5. Interpedicular screws are present at a ll levels. The orthopedic hardware appears intact. IMPRESSION: Intraoperative images from lumbar spinal fusion surgery as above. Electronically signed by: Sinan Bucio M.D. 09/15/2022 1:54 PM
--- NOTE | 2022-09-15 14:23 | Anesthesiology Progress Note ---
Date of Service September 15, 2022 Anesthesia Post Procedure Vital Signs Vital Signs: Temp Pulse Resp BP Pulse Ox O2 Del Method 09/15/22 08:53 Room Air 09/15/22 08:53 36.7 C 85 20 142/93 H 95 Room Air Pain Intensity Bilateral Lower Back: Pain Intensity: 1 Transfer of Care Handoff Completed per policy Notes Mental Status: alert / awake / arousable and participated in evaluation Nausea / Vomiting: adequately controlled Pain: adequately controlled Airway Patency, RR, SpO2: stable & adequate BP & HR: stable & adequate Hydration State: stable & adequate Anesthetic Complications: no major complications apparent and Pt Satisfied with anesthetic care
[2022-09-15] MEDS: LACTATED RINGER'S 1,000 ML IV SCH ×2 (15:20→22:33)
[2022-09-15] MEDS ORDERED: ACETAMINOPHEN 500 MG TAB PO PRN (17:00)
[2022-09-15] MEDS ORDERED: ACETAMINOPHEN 1,000 MG/100 ML VIAL IV PRN (17:00)
[2022-09-15] MEDS: ceFAZolin 2000MG 2,000 MG/15 ML SYR IV SCH (17:51)
[2022-09-15] MEDS: oxyCODONE HCL IR 5 MG TAB (IMMEDIATE RELEASE) PO PRN (19:29)
[2022-09-15] MEDS: DOCUSATE SODIUM/SENNA 50/8.6MG TAB PO SCH (20:25)
[2022-09-15] MEDS: ATORVASTATIN 20 MG TAB PO SCH (20:26)
[2022-09-15] MEDS: TOFACITINIB CITRATE 5 MG PO SCH (20:26)
[2022-09-15] MEDS: LORazepam 0.5 MG TAB PO PRN (21:29)
[2022-09-16] MEDS: ceFAZolin 2000MG 2,000 MG/15 ML SYR IV SCH (04:36)
[2022-09-16] MEDS: LACTATED RINGER'S 1,000 ML IV SCH (05:12)
[2022-09-16] MEDS: POLYETHYLENE (MIRALAX) 17 GM PACK PO SCH ×4 (05:42→23:22)
[2022-09-16 07:00] LABS: Basophils # (auto) 0.01 K/uL (0-0.2); Basophils % (auto) 0.1 %; Hemoglobin 11.6 g/dl (14.0-18.0); Immature Granulocytes # (auto) 0.07 K/uL (0.01-0.20); Immature Granulocytes % (auto) 0.6 %; Lymphocytes # (auto) 0.82 K/uL (1.2-3.4); Lymphocytes % (auto) 7.4 %; Mean Corpuscular Hgb Conc 33.1 g/dL (32.0-36.0); Mean Corpuscular Volume 93.6 fL (80.0-100.0); Mean Platelet Volume 10.4 fL (9.4-12.4); Monocytes # (auto) 1.09 K/uL (0.11-0.59); Monocytes % (auto) 9.9 %; Neutrophils # (auto) 9.04 K/uL (1.40-6.50); Platelet Count 213 K/uL (130-400); RDW Standard Deviation 44.3 fL (36.4-46.3); Red Blood Count 3.74 M/uL (4.70-6.10); White Blood Count 11.03 K/ul (4.8-10.8)
[2022-09-16 07:13] LABS: BUN Creatinine Ratio 18.4 (10-20); Calcium 8.6 mg/dl (8.5-10.1); Creatinine Clr Calc Pharmacy 76.1 ml/min; Est GFR (African American) 75.6 ml/min; Est GFR (Non-African American) 65.3 ml/min; Potassium 4.2 mmol/L (3.5-5.1)
[2022-09-16] MEDS ORDERED: GLUCOSE 40% GEL 15 GM TUBE PO PRN (07:50)
[2022-09-16] MEDS ORDERED: GLUCAGON FOR INJ 1 MG VIAL SQ PRN (07:50)
[2022-09-16] MEDS ORDERED: GLUCOSE 10 TAB/TUBE PO PRN (07:50)
[2022-09-16] MEDS ORDERED: CARBOHYDRATES FOR HYPOGLYCEMIA PO PRN (07:50)
[2022-09-16] MEDS ORDERED: DEXTROSE 50% 50 ML SYRINGE IV PRN (07:50)
--- NOTE | 2022-09-16 07:56 | Hospitalist Consultation ---
Date of Consultation September 16, 2022 Assessment & Plan (1) Acute blood loss anemia: Last known hemoglobin of 14.1 in July 2022, with postoperative hemoglobin this morning of 11.6. Estimated blood loss of 200 cc per operative report, with 500 cc of TAYLER drainage overnight. No evidence of hemodynamic instability, will hold antihypertensive as described below and give IV fluids to this afternoon. Repeat CBC in the morning. (2) Neurogenic claudication due to lumbar spinal stenosis: History of, s/p L3-5 fusion on 09/15/[address] Cavanaugh. Pain management and postoperative care by ortho spine. Constipation regimen ordered given opiate use. (3) Diabetes mellitus: History of, with last A1c in April 2022 of 6.6%. Repeat ordered with a.m. labs. Sliding scale insulin, will defer basal given patient is not on insulin at home and has relatively low A1c on last check. Recommend medication such as metformin, defer to PCP. (4) Hypertension: Patient is typically on amlodipineon losartan for blood pressure control, however with BP 100s/60s this morning in the postoperative period, will hold these for now and reassess tomorrow. (5) Ulcerative colitis: History of, with relatively stable hemoglobin prior to surgical intervention yesterday. Do not suspect that acute blood loss is secondary to GI loss. Plan We will continue to follow through tomorrow to monitor hemoglobin and blood pressures, otherwise care by primary provider Dr. Cavanaugh. History of Present Illness Reason for Consultation: medical management Requesting Physician: Armando Cavanaugh DO Attending Physician: Armando Cavanaugh DO History of Present Illness 67-year-old male past medical history significant for DM 2, hypertension, GERD, hyperlipidemia, chronic back pain, ulcerative colitis admitted by Dr. Cavanaugh on 09/15/2022 for lumbar spinal fusion for chronic back pain not improved with conservative treatments. Patient had surgery on the afternoon of 09/15, and this morning hospitalist service was consulted for concurrent medical management of chronic medical complaints. Today then he reports that he is feeling relatively well, had some trouble sleeping due to back pain however pain is better than prior to surgery. He denies dizziness, chest pain, shortness of breath, abdominal pain. He has not had a bowel movement since yesterday; typical for him is daily. Allergies Allergy/AdvReac Type Severity Reaction Status Date / Time infliximab Allergy Intermediate Remicade- Verified 09/15/22 08:47 Redness, Itching, Hives Home Medications Medication Instructions Recorded Confirmed Type pantoprazole 40 mg tablet,delayed 40 mg PO QAM 12/15/21 09/15/22 History release tofacitinib 5 mg tablet (Xeljanz) 5 mg PO BID #180 tabs 04/21/22 09/15/22 Rx Medical Cannabis 1 dose inhalation HS PRN Sleep 05/13/22 09/15/22 History amlodipine 5 mg-olmesartan 20 mg 1 tab PO QAM 08/07/22 09/15/22 History tablet atorvastatin 20 mg tablet 20 mg PO HS 08/07/22 09/15/22 History oxycodone 5 mg tablet 5 mg PO Q6H PRN pain, severe #30 09/16/22 Rx tabs tramadol 50 mg tablet 50 mg PO Q6H PRN pain, moderate 09/16/22 Rx #30 tabs Patient History Medical History Chronic back pain Chronic obstructive pulmonary disease Stable Diabetes mellitus Per PCP records Dyslipidemia per records GERD without esophagitis History of antinuclear antibodies History of COVID-19 05/2021 treated at [facility] with monoclonal antibody IV infusion Lumbar radiculopathy Mood disorder Obesity Pulmonary nodule monitoring, stable Seborrheic keratoses Spinal stenosis at L4-L5 level Ulcerative colitis Surgical History History of colonoscopy History of esophagogastroduodenoscopy (EGD) (01/2014) History of repair of left rotator cuff History of repair of right rotator cuff History of tooth extraction Hx of cataract extraction R/L S/P right knee arthroscopy Family History Father Diabetes Family history of diabetes mellitus Brother Family history of diabetes mellitus Brother Family history of diabetes mellitus Other No family history of adverse response to anesthesia Ulcerative colitis Denies family history of Ovarian cancer Prostate cancer Crohn's disease Myocardial infarction Breast cancer Lung cancer Colorectal cancer Social History Smoking Status: Former smoker Tobacco Type: E-cigarettes / Vaping Age Started Using Tobacco: 17; Age Quit Using Tobacco: 52; packs per day: 1; Smoking End Date: Quit (hx 20 cigs/day); Second Hand Exposure: No; Do You Dip or Chew Tobacco: No; Tobacco Cessation Education Requested by Patient: No Hx Alcohol Use: Yes Alcohol type: hard liquor Alcohol Intake Frequency: Monthly or Less Hx Substance Use: Yes (medical card) Last Used Substance: Hours (ago) Last Used Substance Other:: daily at night for sleep Preferred Language: Macedonian Communication Ability: Effective Visual Impairment: Limited Hearing Ability: Normal Hand Funnel Coater Required: No Beliefs That Will Affect Care: None marital status: Current Living Situation: Spouse current occupational status: retired Other Information That Helps Us Care for You: No Feels Safe at Home: Yes Safety Concerns: Feels Safe At This Time Childhood Exposure to Second-Hand Smoke: Yes caffeine: Yes during the past year weight has: remained stable Dental Care, Regularly: No Physical Activity Frequency: Daily Seatbelt Use: always Sunscreen Use: Yes Assistive Devices: Glasses Assistive Devices Comment: glasses prn Review of Systems Review of Systems: All systems reviewed & are unremarkable except as noted in Subjective Physical Exam Constitutional: WD/WN, vitals as above Respiratory: normal respiratory effort, lungs clear to auscultation Cardiovascular: RRR, no murmur, no edema Gastrointestinal (Abdomen): normal bowel sounds, soft, nontender, no hepatosplenomegaly Skin: no rashes, warm and dry Psychiatric: A+Ox3, euthymic affect Results & Data Results & Data ([facility]) Vital Signs (Past 12 Hours) Vital Signs Temp Pulse Resp BP Pulse Ox O2 Del Method 09/16/22 07:19 37.1 C 84 16 104/61 94 Room Air 09/16/22 02:37 36.9 C 102 H 16 106/71 95 Room Air 09/15/22 23:00 37.0 C 108 H 16 105/57 L 94 Room Air PG Care Time/CCT Total # of Minutes Spent Total Time Spent with Patient: Total time spent is greater than 50% in coordination of care (as documented) at patient's floor/unit and/or counseling patient: Coding Level of Care Code 39890 IN/OBS CONSULT LVL 4,60M Diagnoses Acute blood loss anemia D62 Neurogenic claudication due to lumbar spinal stenosis M48.062 Diabetes mellitus E11.9 Hypertension I10 Ulcerative colitis K51.90
[2022-09-16] MEDS: oxyCODONE HCL IR 5 MG TAB (IMMEDIATE RELEASE) PO PRN ×4 (07:58→21:12)
[2022-09-16] MEDS: TOFACITINIB CITRATE 5 MG PO SCH ×2 (07:58→21:12)
[2022-09-16] MEDS: PANTOprazole 40 MG TAB PO SCH (07:58)
--- NOTE | 2022-09-16 08:12 | Orthopedic Progress Note ---
Date of Service September 16, 2022 Assessment & Plan (1) Neurogenic claudication due to lumbar spinal stenosis: Plan: At this time initiate physical therapy monitor his TAYLER output hopefully discharge home in the next day or so. Admission and Anticipated Discharge Date Admission Date: September 15, 2022 Subjective Back pain controlled leg pain markedly improved Physical Exam Physical Exam: Patient has good strength testing appears comfortable. Results & Data ([facility]) Vital Signs (Past 12 Hours) Vital Signs Temp Pulse Resp BP Pulse Ox O2 Del Method 09/16/22 07:19 37.1 C 84 16 104/61 94 Room Air 09/16/22 02:37 36.9 C 102 H 16 106/71 95 Room Air 09/15/22 23:00 37.0 C 108 H 16 105/57 L 94 Room Air
[2022-09-16] MEDS ORDERED: amLODIPine BESYLATE 5 MG TAB PO SCH (09:00)
[2022-09-16] MEDS ORDERED: LOSARTAN POTASSIUM 50 MG TAB PO SCH (09:00)
[2022-09-16] MEDS: INSULIN ASPART PER UNIT CHARGE SC SCH ×3 (12:42→21:02)
[2022-09-16] MEDS: DOCUSATE SODIUM/SENNA 50/8.6MG TAB PO SCH (21:03)
[2022-09-16] MEDS: ATORVASTATIN 20 MG TAB PO SCH (21:12)
[2022-09-16] MEDS: LORazepam 0.5 MG TAB PO PRN (21:12)
[2022-09-17] MEDS: oxyCODONE HCL IR 5 MG TAB (IMMEDIATE RELEASE) PO PRN ×4 (02:33→23:54)
[2022-09-17] MEDS: POLYETHYLENE (MIRALAX) 17 GM PACK PO SCH ×4 (06:24→23:54)
--- NOTE | 2022-09-17 07:50 | Orthopedic Progress Note ---
Date of Service September 17, 2022 Assessment & Plan (1) Neurogenic claudication due to lumbar spinal stenosis: Plan: Patient is doing well postop day #2. Rating continue with GI DVT prophylaxis as well as pain control. We will have him ambulate with physical therapy. We will see him tomorrow morning and see if he is ready for home discharge. Admission and Anticipated Discharge Date Admission Date: September 15, 2022 Subjective Patient was seen bedside in room 322. He is doing well today. He has been up and walking. He has not yet had a bowel movement. His pain is well controlled with oral medications. He denies any other numbness, tingling, or paresthesias. Physical Exam Physical Exam: On exam he is alert and oriented. His dressings clean dry and intact. His TAYLER drain is in place and is put out 20 cc on the shift and 25 on the last. His abdomen soft and nontender his calves are supple nontender strength and sensation are both intact. Results & Data ([facility]) Vital Signs (Past 12 Hours) Vital Signs Temp Pulse Resp BP BP Pulse Ox O2 Del Method 09/17/22 07:22 37.1 C 108 H 16 134/68 94 Room Air 09/16/22 20:00 Room Air 09/16/22 21:04 37.5 C 101 H 18 114/72 96 Nasal Cannula O2 Flow Rate 09/17/22 07:22 09/16/22 20:00 09/16/22 21:04 1
[2022-09-17 08:06] LABS: Basophils # (auto) 0.03 K/uL (0-0.2); Basophils % (auto) 0.3 %; Eosinophils # (auto) 0.03 K/uL (0-0.50); Eosinophils % (auto) 0.3 %; Hematocrit (blood only) 36.4 % (42.0-52.0); Hemoglobin 12.2 g/dl (14.0-18.0); Immature Granulocytes # (auto) 0.03 K/uL (0.01-0.20); Immature Granulocytes % (auto) 0.3 %; Lymphocytes # (auto) 1.23 K/uL (1.2-3.4); Lymphocytes % (auto) 13.2 %; Mean Corpuscular Hgb Conc 33.5 g/dL (32.0-36.0); Mean Corpuscular Volume 92.6 fL (80.0-100.0); Mean Platelet Volume 10.6 fL (9.4-12.4); Monocytes # (auto) 1.19 K/uL (0.11-0.59); Monocytes % (auto) 12.7 %; Neutrophils # (auto) 6.84 K/uL (1.40-6.50); Neutrophils % (auto) 73.2 %; Platelet Count 214 K/uL (130-400); RDW Coefficient of Variation 13.2 % (11.5-14.5); RDW Standard Deviation 44.9 fL (36.4-46.3); Red Blood Count 3.93 M/uL (4.70-6.10); White Blood Count 9.35 K/ul (4.8-10.8)
[2022-09-17 08:21] LABS: BUN Creatinine Ratio 22.4 (10-20); Calcium 8.7 mg/dl (8.5-10.1); Creatinine Clr Calc Pharmacy 74.7 ml/min; Est GFR (African American) 74.1 ml/min; Est GFR (Non-African American) 63.9 ml/min; Potassium 4.1 mmol/L (3.5-5.1)
[2022-09-17] MEDS: INSULIN ASPART PER UNIT CHARGE SC SCH ×4 (08:47→22:01)
[2022-09-17] MEDS: PANTOprazole 40 MG TAB PO SCH (08:49)
[2022-09-17] MEDS: TOFACITINIB CITRATE 5 MG PO SCH ×2 (08:49→19:49)
--- NOTE | 2022-09-17 09:08 | Hospitalist Progress Note ---
Date of Service September 17, 2022 Assessment & Plan (1) Acute blood loss anemia: Plan: Last known hemoglobin of 14.1 in July 2022, with postoperative hemoglobin of 11.6, stable at 12.2 on 09/17. Estimated blood loss of 200 cc per operative report, with 500 cc of TAYLER drainage overnight. Hemodynamically stable, no further monitoring of Hgb necessary inpatient unless evidence of hemodynamic instability or active bleeding noted. Repeat CBC by PCP at next appointment to evaluate for recovery. (2) Neurogenic claudication due to lumbar spinal stenosis: Plan: History of, s/p L3-5 fusion on 09/15/[address] Cavanaugh. Pain management and postoperative care by ortho spine. Constipation regimen ordered given opiate use. (3) Diabetes mellitus: Plan: History of, with last A1c in April 2022 of 6.6%, repeat 09/16/22 also 6.6%. Continue sliding scale insulin while admitted. Patient is trying to manage DM2 with diet, defer further medications in this regard to PCP. (4) Hypertension: Plan: Patient is typically on amlodipine-olmesartan for blood pressure control. Will resume amlodipine today as BP is 130s systolic, and can resume home medication on discharge. (5) Ulcerative colitis: Plan: History of, with relatively stable hemoglobin prior to surgical intervention. Do not suspect that acute blood loss is secondary to GI loss. Plan Hospitalist service will sign off at this time, but can be reached for further questions or other patient needs. Thank you for your consult. Admission and Anticipated Discharge Date Admission Date: September 15, 2022 Subjective Patient without events overnight, hemodynamically stable and no concerns expressed to this provider by nursing staff. He reports pain relatively controlled at rest with a lot of pain with movements. Says PT "was tough and didn't go well". No other complaints at this time. Review of Systems Review of Systems: All systems reviewed & are unremarkable except as noted in Subjective Physical Exam Constitutional: WD/WN, vitals as above Respiratory: normal respiratory effort, lungs clear to auscultation Cardiovascular: RRR, no murmur, no edema Gastrointestinal (Abdomen): normal bowel sounds, soft, nontender, no hepatosplenomegaly Skin: no rashes, warm and dry Psychiatric: A+Ox3, euthymic affect Results & Data Results & Data ([facility]) Vital Signs (Past 12 Hours) Vital Signs Temp Pulse Resp BP BP Pulse Ox O2 Del Method 09/17/22 07:22 37.1 C 108 H 16 134/68 94 Room Air 09/16/22 21:04 37.5 C 101 H 18 114/72 96 Nasal Cannula O2 Flow Rate 09/17/22 07:22 09/16/22 21:04 1 PG Care Time/CCT Total # of Minutes Spent Total Time Spent with Patient: Total time spent is greater than 50% in coordination of care (as documented) at patient's floor/unit and/or counseling patient: Coding Level of Care Code 40682 SUB INP/OBS CARE 2/35MIN Diagnoses Acute blood loss anemia D62 Neurogenic claudication due to lumbar spinal stenosis M48.062 Diabetes mellitus E11.9 Hypertension I10 Ulcerative colitis K51.90
[2022-09-17 09:17] LABS: Estimated Average Glucose 143 mg/dl; Hemoglobin A1C 6.6 % (4.5-5.6)
[2022-09-17] MEDS: amLODIPine BESYLATE 5 MG TAB PO SCH (10:45)
[2022-09-17] MEDS: DOCUSATE SODIUM/SENNA 50/8.6MG TAB PO SCH (19:48)
[2022-09-17] MEDS: ATORVASTATIN 20 MG TAB PO SCH (19:48)
[2022-09-18] MEDS: POLYETHYLENE (MIRALAX) 17 GM PACK PO SCH (07:00)
--- NOTE | 2022-09-18 07:43 | Discharge Summary ---
Date of Service September 18, 2022 Admission HPI Per Admitting Provider This is a 67-year-old male who presents with chronic system back and leg pain after failing since course of nonoperative care is here for surgical invention. Discharge Data Consultations 09/16/22 07:39 Consult Hospitalist Routine Procedures Performed Operation Date: 09/15/22 09:55 Actual Procedures p L3-L5 Decompression and Fusion, Spinal Cord Monitoring(Not Applicable) - Armando Cavanaugh DO Hospital Course (1) Neurogenic claudication due to lumbar spinal stenosis: Patient is a pleasant 67-year-old male with history physical examination radiographic images consistent with the above-mentioned diagnosis. For this reason is brought to the operating room on 09/15/2022 and undergone a lumbar decompression fusion from L3-L5. This performed by Dr. Cavanaugh under general anesthesia. Left the operating room TAYLER drain Denny in place and transferred to PACU in stable condition. He was then transferred to the orthopedic floor. He is placed on GI DVT prophylaxis. He is seen by physical therapy postop day #1 for ambulation and gait training. Throughout his hospital course his calves remained supple nontender his abdomen remained supple nontender and on postop day #3 he met criteria for a home discharge. His discharge instructions were to change his dressing once daily until there is no drainage then he may shower. He was to avoid any full bending at the waist and should not anything heavier than 5 to 7 pounds. He was to follow-up with our office in approximately 2 weeks or sooner if he developed any increased pain, tingling, drainage from the incision fevers or chills.
[2022-09-18 08:00] LABS: Hematocrit (blood only) 33.8 % (42.0-52.0); Hemoglobin 11.3 g/dl (14.0-18.0); Mean Corpuscular Hemoglobin 31.3 pg (25.0-34.0); Mean Corpuscular Hgb Conc 33.4 g/dL (32.0-36.0); Mean Corpuscular Volume 93.6 fL (80.0-100.0); Mean Platelet Volume 10.2 fL (9.4-12.4); Platelet Count 203 K/uL (130-400); RDW Coefficient of Variation 12.6 % (11.5-14.5); RDW Standard Deviation 43.5 fL (36.4-46.3); Red Blood Count 3.61 M/uL (4.70-6.10); White Blood Count 7.64 K/ul (4.8-10.8)
[2022-09-18 08:14] LABS: BUN Creatinine Ratio 22.6 (10-20); Calcium 8.8 mg/dl (8.5-10.1); Creatinine Clr Calc Pharmacy 75.4 ml/min; Est GFR (African American) 74.8 ml/min; Est GFR (Non-African American) 64.6 ml/min; Potassium 4.3 mmol/L (3.5-5.1)
[2022-09-18] MEDS: oxyCODONE HCL IR 5 MG TAB (IMMEDIATE RELEASE) PO PRN (08:15)
[2022-09-18] MEDS: TOFACITINIB CITRATE 5 MG PO SCH (08:16)
[2022-09-18] MEDS: PANTOprazole 40 MG TAB PO SCH (08:16)
[2022-09-18] MEDS: amLODIPine BESYLATE 5 MG TAB PO SCH (08:16)
[2022-09-18] MEDS: INSULIN ASPART PER UNIT CHARGE SC SCH (09:18)
== END 2022-09-18 11:32 | disposition home or self-care (01) | DRG 454 ==
LOC: ASU 08:29 → INTOOBSV 13:37 → 3E 13:37

== ENCOUNTER 2023-11-10 07:41 | Inpatient (IN) ==
--- NOTE | 2023-10-19 11:55 | PAT Medication Instructions ---
Medication Instructions Date of Service October 19, 2023 Home Medications Medication Instructions Recorded tofacitinib 5 mg tablet (Xeljanz) 5 mg PO BID #180 tabs 04/22/23 Medical Cannabis 1 dose PO HS PRN Sleep tofacitinib 5 mg tablet (Xeljanz) 5 mg PO BID atorvastatin 20 mg tablet 20 mg PO QPM olmesartan 20 mg tablet 20 mg PO QAM pantoprazole 40 mg tablet,delayed release 40 mg PO QAM semaglutide 3 mg tablet (Rybelsus) 3 mg PO QAM ASK your prescriber and surgeon tofacitinib 5 mg tablet (Xeljanz) 5 mg PO BID DO NOT take the morning of surgery olmesartan 20 mg tablet 20 mg PO QAM semaglutide 3 mg tablet (Rybelsus) 3 mg PO QAM Take morning of surgery With a small sip of water, OTHERWISE NOTHING TO EAT OR DRINK AFTER MIDNIGHT: pantoprazole 40 mg tablet,delayed release 40 mg PO QAM Take evening before surgery Medical Cannabis 1 dose PO HS PRN Sleep (if needed) atorvastatin 20 mg tablet 20 mg PO QPM Other Notes If you have any questions please call us at [phone] or [phone] or [phone] or [phone]
--- NOTE | 2023-10-25 12:50 | Anesthesiology Consultation ---
Date of Service October 25, 2023 Assessment & Plan (1) Encounter for pre-operative examination: Plan - check BSG am DOS. Pending: - surgeon ordered medical clearance-[place] PCP 11/01/23. - upcoming chest [facility] 11/08/23. - UA. Patient unable to void at PAT visit, plans to complete specimen and return to [facility] lab. Chart Review Chart Review: Pending: Refer to Additional Notes / Consult section and Patient seen in Pre Admission Testing Teaching & Discussion Pre-Anesthesia Teaching/Discussion Notes: Instructed NPO after midnight before surgery, except medications with 15 cc of water. Medication instructions provided according to the [facility] guidelines. History Surgery Operation Date: 11/10/23 09:35 Proposed Procedures p L2-L3 Decompression and Fusion, Hardware Removal L3-L5 with Spinal Cord Monitoring - Armando Cavanaugh DO Height/Weight Height: 5 ft 10 in Weight: 95.7 kg Allergies Allergy/AdvReac Type Severity Reaction Status Date / Time infliximab Allergy Severe Remicade-an Verified 10/25/23 12:51 aphylaxis Medications Home Medications Medication Instructions Recorded Confirmed Last Taken Medical Cannabis 1 dose PO HS PRN Sleep 05/13/22 10/19/23 09/14/22 21:00 tofacitinib 5 mg tablet (Xeljanz) 5 mg PO BID #180 tabs 04/22/23 10/19/23 Unknown atorvastatin 20 mg tablet 20 mg PO QPM 10/19/23 10/19/23 Unknown olmesartan 20 mg tablet 20 mg PO QAM 10/19/23 10/19/23 Unknown pantoprazole 40 mg tablet,delayed 40 mg PO QAM 10/19/23 10/19/23 Unknown release semaglutide 3 mg tablet (Rybelsus) 3 mg PO QAM 10/19/23 10/19/23 Unknown Past Medical History Medical History (Updated 10/25/23 @ 18:05 by Denisha Root PA-C) Chronic obstructive pulmonary disease controlled, stable per pt-denies inhaler use Class 1 obesity due to excess calories with body mass index (BMI) of 34.0 to 34.9 in adult Closed compression fracture of L4 vertebra Diabetes mellitus pt denies; entered into EMR by [place] PCP; A1c 6.8% 01/2023 Dyslipidemia GERD without esophagitis controlled, stable per pt History of antinuclear antibodies History of COVID-19 multiple, 05/2021 treated at [facility] with monoclonal antibody IV infusion-denies residual effects History of diverticulosis Hypertension controlled, stable per pt Intractable back pain denies acute change or worsening Lumbar radiculopathy Mood disorder Seborrheic keratoses Spinal stenosis at L4-L5 level Squamous cell carcinoma lung (~03/2023) lesion removed, no chemo or XRT. Follows with Dr. Patel at [facility], having CT chest on 11/08/23 at [facility] Ulcerative colitis Patient denies h/o stroke, seizures, heart attack, heart failure, blood clots/DVTs or blood transfusions. Exercise / Class Metabolic Activity II 4-5 Yardwork/Stairs/Walk up hill (denies chest discomfort or shortness of breath with 1 FOS) Past Family History Family History Father Diabetes Family history of diabetes mellitus Brother Family history of diabetes mellitus Brother Family history of diabetes mellitus Other No family history of adverse response to anesthesia Ulcerative colitis Denies family history of Ovarian cancer Prostate cancer Crohn's disease Myocardial infarction Breast cancer Lung cancer Colorectal cancer Past Surgical History Surgical History History of back surgery (~09/2022) L3-L5 History of colonoscopy History of esophagogastroduodenoscopy (EGD) (01/2014) History of lung biopsy (~12/2022) SHERRELL nodule at [facility] History of lung surgery (~03/2023) left lung lesion removal (11mm), was cancerous, no chemo or XRT. Follows with Dr. Patel at [facility], having CT chest on 11/08/23 at [facility] History of tooth extraction Hx of bilateral cataract extraction Hx of rotator cuff surgery x 2, left and right S/P right knee arthroscopy Past Anesthesia History No Hx of Anesthesia Complications and No Family Hx of Anesthesia Complications History of PONV No Hx of PONV and No Hx of Motion Sickness Social History Smoking Status: Former smoker tobacco type: cigarettes Smoking cigarettes per day: 1 PPD Do You Dip or Chew Tobacco: No Smoking End Date: quit 2008 Hx Alcohol Use: Yes Alcohol type: hard liquor alcohol intake frequency: holidays/special occasions only Hx Substance Use: Yes substance use type: marijuana Last Used Substance: Days (ago) Last Used Substance Other:: Medical Marijuana-advised Review of Systems Patient denies chest pain, shortness of breath, dyspnea on exertion, snoring, witnessed apneas, fever, chills, cough, wheezing, or palpitations. Physical Exam Vital Signs Vitals BP 126/85 P 85 TEMP 97.7 SP02 97% on RA RESP 18 Physical Patient resting comfortably in chair in no acute distress, alert and oriented, responding appropriately throughout visit Full cervical extension range of motion without pain TMD 3.5 finger breadths Mallampati Score 3 Dentition: intact, denies chipped or loose teeth, caps/crowns, implants or bridges Lungs: normal respiratory effort. Good air movement, clear throughout to auscultation, no adventitious breath sounds Cardiac: regular rate and rhythm, no murmurs noted Carotid arteries: negative bruit bilat Lab Results Anesthesia Preop Results Results Anesthesia Widget: WBC 5.64 K/ul (4.8-10.8) 09/30/23 Hgb 14.1 g/dl (14.0-18.0) 09/30/23 Hct 43.6 % (42.0-52.0) 09/30/23 Plt 243 K/uL (130-400) 09/30/23 Na 141 mmol/L (136-145) 09/30/23 K 3.8 mmol/L (3.5-5.1) 09/30/23 Cl 109 mmol/L (98-107) H 09/30/23 CO2 27 mmol/L (21-32) 09/30/23 BUN 20 mg/dl (6-23) 09/30/23 Creat 1.11 mg/dl (0.6-1.4) 09/30/23 Glucose Level 101 mg/dl (70-99(Fasting)) H 09/30/23 PT 11.2 Seconds (9.0-12.0) 10/25/23 PTT 27 Seconds (21-31) 10/25/23 INR 1.0 (0.9-1.1) 10/25/23 HA1c 6.2 % (4.5-5.6) H 09/30/23 Blood Type A Positive 10/25/23 Antibody Screen NEGATIVE 10/25/23 Testing Electrocardiogram Date: 03/18/23 Sinus rhythm with 1st degree AV block, rate 67 bpm Other Testing PET scan 12/16/22 1. Emphysema. 2. There is a 1.5 cm FDG avid pulmonary nodule in the left upper lobe. A lung cancer is the diagnosis of exclusion. 3. No additional pulmonary lesion is seen. 4. There is no evidence of FDG avid metastatic disease. 5. There is nonspecific FDG localizing to the lower rectum/anus. No abnormality is seen on the CT images and this may be physiologic. Correlate with direct visualization. 6. Hepatic steatosis. 7. Cholelithiasis. 8. Additional findings as above.
[~2023-11-10 07:41] MED LIST changes: +LR 60ML/HR IV SCH
[2023-11-10] MEDS: ACETAMINOPHEN 500 MG TAB PO SCH (08:40)
[2023-11-10] MEDS: GABAPENTIN 300 MG CAP PO SCH (08:40)
[2023-11-10] MEDS: CeleBREX 200 MG CAP PO SCH (08:40)
[2023-11-10] MEDS: LR 15ML/HR IV SCH (08:42)
[2023-11-10] MEDS: LR 60ML/HR IV SCH (08:42)
[2023-11-10] MEDS ORDERED: LIDOCAINE 2% 2 ML VIAL/AMP(20MG/ML) INFIL ONE ×2 (09:11→09:36)
[2023-11-10] MEDS ORDERED: PROPOFOL IV EMULSION 10 MG/ML 20 ML VIAL IV ONE (09:11)
[2023-11-10] MEDS ORDERED: ROCURONIUM BROMIDE 10 MG/ML 5 ML VIAL IV ONE (09:11)
[2023-11-10] MEDS ORDERED: fentaNYL citrate PF 100 MCG/2 ML VIAL ONE ×2 (09:11→10:31)
[2023-11-10] MEDS ORDERED: ONDANSETRON INJ 2 MG/ML 2 ML VIAL ONE (09:11)
[2023-11-10] MEDS ORDERED: DEXAMETHASONE SOD INJ 4 MG/ML VIAL ONE (09:11)
[2023-11-10] MEDS ORDERED: MIDAZOLAM HCL 1 MG/ML 2ML VIAL ONE (09:11)
--- NOTE | 2023-11-10 09:21 | History & Physical Bridge Note ---
Date of Service November 10, 2023 History & Physical Bridge Note I have examined the patient, reviewed the History & Physical and in the interval since the performance of the History & Physical I have noted the following changes of clinical significance: no changes noted
--- NOTE | 2023-11-10 09:22 | History & Physical Report ---
Date of Service November 10, 2023 Assessment & Plan (1) Neurogenic claudication due to lumbar spinal stenosis: Plan: L2-L3 decompression and fusion, hardware removal L3-L5 History of Present Illness Chief Complaint: Back and leg pain Primary Care Provider: Slick Dunham DO 5-year-old male who presents with chronic persistent back and leg pain after failing course of nonoperative care is here for surgical invention. Allergies Allergy/AdvReac Type Severity Reaction Status Date / Time infliximab Allergy Severe Remicade-an Verified 11/10/23 08:24 aphylaxis Home Medications Medication Instructions Recorded Confirmed Type Medical Cannabis 1 dose PO HS PRN Sleep 05/13/22 11/10/23 History tofacitinib 5 mg tablet (Xeljanz) 5 mg PO BID #180 tabs 04/22/23 11/10/23 Rx atorvastatin 20 mg tablet 20 mg PO QPM 10/19/23 11/10/23 History olmesartan 20 mg tablet (Benicar) 20 mg PO QAM 10/19/23 11/10/23 History semaglutide 3 mg tablet (Rybelsus) 3 mg PO QAM 10/19/23 11/10/23 History tramadol 50 mg tablet 50 mg PO Q6H PRN pain, moderate 11/01/23 11/10/23 Rx #30 tabs pantoprazole 40 mg tablet,delayed 40 mg PO QAM #90 tabs 11/08/23 11/10/23 Rx release methylprednisolone 4 mg tablet 4 mg PO UD 11/09/23 11/10/23 History Past Med/Surg History Medical History History of diverticulosis Hypertension controlled, stable per pt Squamous cell carcinoma lung (~03/2023) lesion removed, no chemo or XRT. Follows with Dr. Patel at [facility], having CT chest on 11/08/23 at [facility] Class 1 obesity due to excess calories with body mass index (BMI) of 34.0 to 34.9 in adult Lumbar radiculopathy Intractable back pain denies acute change or worsening Closed compression fracture of L4 vertebra Spinal stenosis at L4-L5 level Diabetes mellitus pt denies; entered into EMR by [place] PCP; A1c 6.8% 01/2023 Seborrheic keratoses History of COVID-19 multiple, 05/2021 treated at [facility] with monoclonal antibody IV infusion-denies residual effects Ulcerative colitis Chronic obstructive pulmonary disease controlled, stable per pt-denies inhaler use Dyslipidemia GERD without esophagitis controlled, stable per pt History of antinuclear antibodies Mood disorder Surgical History Hx of rotator cuff surgery x 2, left and right History of lung biopsy (~12/2022) SHERRELL nodule at [facility] History of lung surgery (~03/2023) left lung lesion removal (11mm), was cancerous, no chemo or XRT. Follows with Dr. Patel at [facility], having CT chest on 11/08/23 at [facility] History of back surgery (~09/2022) L3-L5 Hx of bilateral cataract extraction S/P right knee arthroscopy History of colonoscopy History of tooth extraction History of esophagogastroduodenoscopy (EGD) (01/2014) Family History Father Diabetes Family history of diabetes mellitus Brother Family history of diabetes mellitus Brother Family history of diabetes mellitus Other No family history of adverse response to anesthesia Ulcerative colitis Denies family history of Ovarian cancer Prostate cancer Crohn's disease Myocardial infarction Breast cancer Lung cancer Colorectal cancer Social History (Updated 06/01/23 @ 14:28 by Jazmine Wills LPN) Smoking Status: Former smoker Tobacco Type: Cigarettes Age Started Using Tobacco: 17; Age Quit Using Tobacco: 52; packs per day: 1; Cigarettes Per Day: 1 PPD; Smoking End Date: quit 2008; Second Hand Exposure: No; Do You Dip or Chew Tobacco: No; Tobacco Cessation Education Requested by Patient: No Hx Alcohol Use: Yes Alcohol type: hard liquor Alcohol Intake Frequency: Monthly or Less Hx Substance Use: Yes Last Used Substance: Days (ago) Last Used Substance Other:: Medical Marijuana-advised Preferred Language: Spanish Communication Ability: Effective Visual Impairment: Limited Hearing Ability: Normal 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: No Beliefs That Will Affect Care: None marital status: Current Living Situation: Spouse current occupational status: retired Other Information That Helps Us Care for You: No Feels Safe at Home: No Is there a partner from a previous relationship who is making you feel unsafe now?: No Any Concerns about Your Family Situation: No Would You Like to Speak to Someone About Your Situation: No Safety Concerns: Feels Safe At This Time Childhood Exposure to Second-Hand Smoke: Yes caffeine: Yes during the past year weight has: remained stable Dental Care, Regularly: No Physical Activity Frequency: Daily Seatbelt Use: always Sunscreen Use: Yes Assistive Devices: Glasses Physical Exam Physical Exam: Patient is alert and oriented Heart regular rhythm Lungs clear Results & Data Results & Data Vital Signs (Past 12 Hours) Vital Signs Temp Pulse Resp BP Pulse Ox O2 Del Method 11/10/23 08:27 36.6 C 78 18 148/91 H 98 Room Air
[2023-11-10] MEDS ORDERED: ePHEDrine sulfate 50 MG/ML AMP IV PRN (09:40)
[2023-11-10] MEDS ORDERED: ONDANSETRON INJ 2 MG/ML 2 ML VIAL IV PRN ×2 (09:40→14:00)
[2023-11-10] MEDS ORDERED: ATROPINE SULFATE 0.1 MG/ML 10ML SYR IV PRN (09:40)
[2023-11-10] MEDS: ceFAZolin 2000MG 2,000 MG/15 ML SYR IV SCH ×2 (09:43→17:44)
[2023-11-10] MEDS: BUPIVACAINE/EPINEPHRINE 0.25% 1:200,000 30 ML VIAL ONE (10:12)
[2023-11-10] MEDS: ceFAZolin 330 MG/ML 1 GM VIAL ONE (10:52)
[2023-11-10] MEDS ORDERED: SUGAMMADEX SODIUM 200 MG/2 ML VIAL IV ONE (11:10)
[2023-11-10] MEDS: FLOSEAL HEMOSTATIC MATRIX 10ML TOP ONE (11:11)
[2023-11-10] MEDS ORDERED: HYDROmorphone INJ 2 MG/ML SYR/VIAL ONE (11:19)
--- NOTE | 2023-11-10 11:20 | Operative Report ---
Post Operative Report Pre & Post Diagnosis Operation Date: 11/10/23 09:35 Pre-Op Diagnosis: Neurogenic Claudication due to Lumbar Spinal Stenosis Lumbar disc herniation L2-L3 Post-Op Diagnosis: Same I identified the patient and participated in the time-out.: Yes Procedure Operation Date: 11/10/23 09:35 Actual Procedures #1 removal of posterior instrumentation L3-L5. #2 exploration of fusion L3-L5. #3 lumbar decompression bilateral medial facetectomies and foraminotomies L1-L2 L2-L3. #4 posterior spinal fusion L2-L3. #5 posterior instrumentation L2-L5. #6 interbody fusion L2-L3. #7 placement Spira 14 x 26 mm at L2-L3. #8 placement locally harvested morselized autograft and posterior gutters. #9 placed infuse collagen sponge combined with Koros in the posterior lateral gutters and Morpheus bone graft and interbody space. Surgeon Armando Cavanaugh DO Scientific Advisor Holli Pereira Estimated Blood Loss 150 Findings Consistent with Post-Op Diagnosis Specimens None Indications This is a 5-year-old male presents problems diagnosis Since course of nonoperative care is here for surgical invention. Description of Procedure Patient was met with identified informed consent obtained. Patient was then taken to the operative suite underwent patient placed in a prone position the Erik table on top of the Livan frame. All bony prominences well-padded eyes inspected to ensure no external pressure placed upon them. This point the lumbar spine was prepped and draped in normal sterile fashion. Sharp dissection with the assistance of Bovie cautery performed down to and exposing the lamina transverse processes of L2 and instrumentation at L3-L4-L5 bilaterally. I then proceeded to move the hardware bilaterally explored the fusion mass noting it to be maturing and intact. I then performed a complete laminectomy of L2 including bilateral medial facetectomies and foraminotomies addressing severe spinal stenosis followed by partial laminectomy of L1 with bilateral medial facetectomies to address all lateral recess stenosis. Pedicle screws then placed in L2-L3 L4-5 bilaterally with assistance of fluoroscopy and the properly sized olman placed. By way of a trans foraminal approach on the right a complete discectomy of L2-L3 was performed endplates guided to subcortical bleeding bone and a 14 x 26 mm Spira cage filled with Morpheus bone graft tapped in position. The rods then compressed locked in final position bilaterally. The transverse processes of L2-L3 burred to subcortical bleeding bone. Infuse collagen sponge combined with Koros and local autograft placed in the posterior gutters. 15 round TAYLER drain inserted. The incision was then closed with 1 Vicryl the fascia 2-0 Vicryl subcutaneously and 4 Monocryl for final skin closure. Steri-Strips dressings placed. Patient awakened taken to PACU in stable condition. Please note spinal cord monitoring was utilized at the procedure no changes noted. Lastly Holli Pereira was present at the entire surgery and while the patient positioning complex portion of the surgery and final skin closure. I attest to the content of the Intraoperative Record and any orders documented therein. Any exceptions are noted below.
--- NOTE | 2023-11-10 11:38 | Fluoroscopy Report ---
INTRAOPERATIVE RADIOGRAPHS CLINICAL HISTORY: Lumbar spinal fusion surgery. Fluoro time: 10 seconds Ka,r: 7.49 mGy FINDINGS: 2 spot fluoroscopic views of the lumbar spine are presented. There has been discectomy at L 2-L3, L3-L4, and L4-L5 with laminectomy and posterior fusion at L2-L5. Interpedicular screws are pres ent at all levels. The orthopedic hardware appears intact. IMPRESSION: Intraoperative images from lumbar spinal fusion surgery as above. Electronically signed by: Sinan Bucio M.D. 11/10/2023 11:36 AM
[2023-11-10] MEDS ORDERED: DexMEDEtomidine HCL IV 100 MCG/ML VIAL IV ONE (11:48)
[2023-11-10] MEDS: fentaNYL citrate PF 100 MCG/2 ML VIAL IV PRN (12:21)
--- NOTE | 2023-11-10 13:02 | Anesthesiology Progress Note ---
Date of Service November 10, 2023 Anesthesia Post Procedure Vital Signs Vital Signs: Temp Pulse Resp BP Pulse Ox O2 Del Method O2 Flow Rate 11/10/23 12:45 74 19 128/73 99 Nasal Cannula 2 11/10/23 12:35 72 12 120/57 L 99 Nasal Cannula 2 11/10/23 12:25 98.1 F 70 18 117/60 98 Nasal Cannula 2 11/10/23 12:15 72 13 115/72 95 Room Air 0 11/10/23 12:05 70 16 120/40 L 96 Room Air 0 11/10/23 11:55 73 12 106/49 L 97 Room Air 0 11/10/23 11:45 72 16 110/65 95 Room Air 0 11/10/23 11:39 96.8 F L 79 14 124/74 96 Oxymask 8 11/10/23 08:27 97.9 F 78 18 148/91 H 98 Room Air Pain Intensity Back: Pain Intensity: 2 Transfer of Care Handoff Completed per policy Notes Mental Status: alert / awake / arousable and participated in evaluation Patient Amnestic to Procedure: Yes Nausea / Vomiting: adequately controlled Pain: adequately controlled Airway Patency, RR, SpO2: stable & adequate BP & HR: stable & adequate Hydration State: stable & adequate Anesthetic Complications: no major complications apparent and Pt Satisfied with anesthetic care
[2023-11-10] MEDS ORDERED: PROMETHAZINE HCL 12.5 MG in SODIUM CHLORIDE 0.9% 50 ML IV PRN (14:00)
[2023-11-10] MEDS ORDERED: hydrOXYzine HCl 25 MG TAB PO PRN (14:00)
[2023-11-10] MEDS ORDERED: ALUMINUM/MAGNESIUM SUSP 30 ML UDC PO PRN (14:00)
[2023-11-10] MEDS ORDERED: DO NOT ADMINISTER PNEUMOCOCCAL VACCINE PRN (14:00)
[2023-11-10] MEDS ORDERED: DO NOT ADMINISTER FLU VACCINE PRN (14:00)
[2023-11-10] MEDS ORDERED: diphenhydrAMINE Capsule 25 MG CAP PO PRN (14:00)
[2023-11-10] MEDS ORDERED: HYDROmorphone INJ 1 MG/ML SYRINGE IV PRN (14:00)
[2023-11-10] MEDS ORDERED: FAMOTIDINE 20 MG TAB PO PRN (14:00)
[2023-11-10] MEDS ORDERED: METOCLOPRAMIDE HCL INJ 5 MG/ML 2 ML VIAL IV PRN (14:00)
[2023-11-10] MEDS ORDERED: MEDICAL CANNABIS PO PRN (14:00)
[2023-11-10] MEDS ORDERED: ACETAMINOPHEN 1,000 MG/100 ML VIAL IV PRN (14:00)
[2023-11-10] MEDS ORDERED: SOD PHOSPHATE/SOD BIPHOSPHATE ENEMA 132 ML BTL PR PRN (14:00)
[2023-11-10] MEDS ORDERED: LORazepam 0.5 MG in SYRINGE 0.25 ML IV PRN (14:00)
[2023-11-10] MEDS ORDERED: ONDANSETRON 4 MG OD TAB PO PRN (14:00)
[2023-11-10] MEDS ORDERED: NALOXONE HCL 0.4 MG/1 ML VIAL/CARP IV PRN (14:00)
[2023-11-10] MEDS ORDERED: bisacodyL 10 MG SUPP PR PRN (14:00)
[2023-11-10] MEDS: LACTATED RINGER'S 1,000 ML IV SCH (14:30)
[2023-11-10] MEDS: HYDROmorphone INJ 0.5 MG/0.5 ML SYR IV PRN (14:58)
[2023-11-10] MEDS: [UNRECOGNIZED DRUG - OTHER] SCH (14:58)
--- NOTE | 2023-11-10 16:28 | Hospitalist Consultation ---
Date of Consultation November 10, 2023 Assessment & Plan (1) Status post lumbar spinal fusion: -Pain control, IV fluids, DVT PPX, and perioperative abx per the primary team -Currently stable with pain well controlled after his procedure -Agree with am CBC and BMP tomorrow, we will review -Please reach out with any questions or concerns, medicine will continue to follow (2) Hypertension: -Stable -Agree with continuing Olmesartan (Losartan while admitted) tomorrow if stable (3) Diabetes mellitus: -Hold Semaglutide -Last Hgb A1c in September of this year was 6.2 -Will monitor BSG ACHS, goal is 110-160 -Suspect he will be hyperglycemic due to steroid use -Will start 5 units lantus BID -CF 30 and CR of 10 -Pharmacy glycemic consult ordered (4) GERD without esophagitis: -Continue PPI (5) Ulcerative colitis: -No abdominal discomfort -Continue Xeljanz Plan The patient was discussed with Dr. Frost at the time of the consult History of Present Illness Reason for Consultation: Post-Op medical management Requesting Physician: Armando Cavanaugh DO Attending Physician: Dr. Kevin Frost History of Present Illness Isauro Costello is a 68 year old male with a PMH significant for DMII, HTN, Ulcerative Colitis, Stage I Squamous cell carcinoma of the left lung S/P therapeutic left upper lobe resection, dyslipidemia, and obesity who presented to the [facility] OR on 11/10/23 for scheduled L2-L3 Decompression and Fusion with Dr. Cavanaugh. Per the operative report, EBL was listed as 150, anesthesia type was not listed, and there were no reported intraoperative complications. At the time of the exam the patient was sitting in bed in no acute distress. He states that he is feeling well after his procedure, his pain is currently well controlled. Denies new weakness or paresthesias since the procedure. States that he was started on Methylprednisolone by Dr. Cavanaugh earlier this week due to worsening low back pain, he is not on chronic steroids. Has not had a UC flare in 2 years since starting Xeljanz. His Banquet Houseperson wanted him to continue Xeljanz during this admission. Please refer to Dr. Frost's attestation for any changes to the treatment plan Allergies Allergy/AdvReac Type Severity Reaction Status Date / Time infliximab Allergy Severe Remicade-an Verified 11/10/23 08:24 aphylaxis Home Medications Medication Instructions Recorded Confirmed Type Medical Cannabis 1 dose PO HS PRN Sleep 05/13/22 11/10/23 History tofacitinib 5 mg tablet (Xeljanz) 5 mg PO BID #180 tabs 04/22/23 11/10/23 Rx atorvastatin 20 mg tablet 20 mg PO QPM 10/19/23 11/10/23 History olmesartan 20 mg tablet (Benicar) 20 mg PO QAM 10/19/23 11/10/23 History semaglutide 3 mg tablet (Rybelsus) 3 mg PO QAM 10/19/23 11/10/23 History tramadol 50 mg tablet 50 mg PO Q6H PRN pain, moderate 11/01/23 11/10/23 Rx #30 tabs pantoprazole 40 mg tablet,delayed 40 mg PO QAM #90 tabs 11/08/23 11/10/23 Rx release methylprednisolone 4 mg tablet 4 mg PO UD 11/09/23 11/10/23 History Patient History Medical History History of diverticulosis Hypertension controlled, stable per pt Squamous cell carcinoma lung (~03/2023) lesion removed, no chemo or XRT. Follows with Dr. Patel at [facility], having CT chest on 11/08/23 at [facility] Class 1 obesity due to excess calories with body mass index (BMI) of 34.0 to 34.9 in adult Lumbar radiculopathy Intractable back pain denies acute change or worsening Closed compression fracture of L4 vertebra Spinal stenosis at L4-L5 level Diabetes mellitus pt denies; entered into EMR by [facility] PCP; A1c 6.8% 01/2023 Seborrheic keratoses History of COVID-19 multiple, 05/[address] [facility] with monoclonal antibody IV infusion-denies residual effects Ulcerative colitis Chronic obstructive pulmonary disease controlled, stable per pt-denies inhaler use Dyslipidemia GERD without esophagitis controlled, stable per pt History of antinuclear antibodies Mood disorder Surgical History (Updated 11/10/23 @ 16:54 by Christopher Kumar PA-C) Hx of rotator cuff surgery x 2, left and right History of lung biopsy (~12/2022) SHERRELL nodule at [facility] History of lung surgery (~03/2023) left lung lesion removal (11mm), was cancerous, no chemo or XRT. Follows with Dr. Patel at [facility], having CT chest on 11/08/23 at [facility] History of back surgery (~09/2022) L3-L5 Hx of bilateral cataract extraction S/P right knee arthroscopy History of colonoscopy History of tooth extraction History of esophagogastroduodenoscopy (EGD) (01/2014) Family History Father Diabetes Family history of diabetes mellitus Brother Family history of diabetes mellitus Brother Family history of diabetes mellitus Other No family history of adverse response to anesthesia Ulcerative colitis Denies family history of Ovarian cancer Prostate cancer Crohn's disease Myocardial infarction Breast cancer Lung cancer Colorectal cancer Social History (Updated 06/01/23 @ 14:28 by Jazmine Wills LPN) Smoking Status: Former smoker Tobacco Type: Cigarettes Age Started Using Tobacco: 17; Age Quit Using Tobacco: 52; packs per day: 1; Cigarettes Per Day: 1 PPD; Smoking End Date: quit 2008; Second Hand Exposure: No; Do You Dip or Chew Tobacco: No; Tobacco Cessation Education Requested by Patient: No Hx Alcohol Use: Yes Alcohol type: hard liquor Alcohol Intake Frequency: Monthly or Less Hx Substance Use: Yes Last Used Substance: Days (ago) Last Used Substance Other:: Medical Marijuana-advised Preferred Language: Bruneian Communication Ability: Effective Visual Impairment: Limited Hearing Ability: Normal 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: No Beliefs That Will Affect Care: None marital status: Current Living Situation: Spouse current occupational status: retired Other Information That Helps Us Care for You: No Feels Safe at Home: No Is there a partner from a previous relationship who is making you feel unsafe now?: No Any Concerns about Your Family Situation: No Would You Like to Speak to Someone About Your Situation: No Safety Concerns: Feels Safe At This Time Childhood Exposure to Second-Hand Smoke: Yes caffeine: Yes during the past year weight has: remained stable Dental Care, Regularly: No Physical Activity Frequency: Daily Seatbelt Use: always Sunscreen Use: Yes Assistive Devices: Glasses Physical Exam Physical Exam: Physical Exam: General: In no acute distress, stated age, well-nourished, good hygiene HEENT: Normocephalic, atraumatic, no scleral icterus, pupils around round, symmetrical, and reactive to light, moist mucus membranes, trachea midline, no thyromegaly Chest/Pulm: No respiratory distress, symmetrical chest expansion, clear breath sounds throughout Cardiac: RRR, no murmurs noted Abdomen: Negative for ascites and bruising, normoactive bowel sounds, soft, non-tender to palpation throughout Musculoskeletal: Lumbar surgical site is currently bandaged without signs of drainage/saturation, drain is in place and appears to be functioning appropriately, intact sensation and motor function in the BL feet Extremities: Radial, dorsalis pedis, and posterior tibial pulses are intact and symmetrical, no edema noted in the BL LE's Skin: Warm, dry, no rashes , lesions, or scars noted Neuro: Alert and oriented to person, place, month, year, and president, no focal defects, no tremors noted Psych: No acute distress, calm and cooperative during the exam Results & Data Results & Data Vital Signs (Past 12 Hours) Vital Signs Temp Pulse Pulse Resp BP Pulse Ox O2 Del Method 11/10/23 15:49 36.7 C 79 16 126/68 95 Room Air 11/10/23 14:48 36.6 C 82 16 121/76 94 Room Air 11/10/23 14:01 36.6 C 76 16 127/75 95 Nasal Cannula 11/10/23 13:30 36.1 C L 67 14 114/72 97 Nasal Cannula 11/10/23 13:15 69 12 115/68 97 Nasal Cannula 11/10/23 13:00 68 13 112/69 94 Nasal Cannula 11/10/23 12:45 74 19 128/73 99 Nasal Cannula 11/10/23 12:35 72 12 120/57 L 99 Nasal Cannula 11/10/23 12:25 36.7 C 70 18 117/60 98 Nasal Cannula 11/10/23 12:15 72 13 115/72 95 Room Air 11/10/23 12:05 70 16 120/40 L 96 Room Air 11/10/23 11:55 73 12 106/49 L 97 Room Air 11/10/23 11:45 72 16 110/65 95 Room Air 11/10/23 11:39 36.0 C L 79 14 124/74 96 Oxymask 11/10/23 08:27 36.6 C 78 18 148/91 H 98 Room Air O2 Flow Rate 11/10/23 15:49 11/10/23 14:48 11/10/23 14:01 2 11/10/23 13:30 4 11/10/23 13:15 2 11/10/23 13:00 2 11/10/23 12:45 2 11/10/23 12:35 2 11/10/23 12:25 2 11/10/23 12:15 0 11/10/23 12:05 0 11/10/23 11:55 0 11/10/23 11:45 0 11/10/23 11:39 8 11/10/23 08:27 Laboratory Results Abnormal lab results 11/10/23 11/10/23 Range/Units 08:09 11:47 POC Glucose 110 H 151 H (70-99) mg/dl Diagnostic Findings Lumbar Spine X-Ray 11/10/23 00:00 INTRAOPERATIVE RADIOGRAPHS CLINICAL HISTORY: Lumbar spinal fusion surgery. Fluoro time: 10 seconds Ka,r: 7.49 mGy FINDINGS: 2 spot fluoroscopic views of the lumbar spine are presented. There has been discectomy at L2-L3, L3-L4, and L4-L5 with laminectomy and posterior fusion at L2-L5. Interpedicular screws are present at all levels. The orthopedic hardware appears intact. IMPRESSION: Intraoperative images from lumbar spinal fusion surgery as above. Electronically signed by: Sinan Bucio M.D. 11/10/2023 11:36 AM PG Care Time/CCT Total # of Minutes Spent Total Time Spent with Patient: Total time spent is greater than 50% in coordination of care (as documented) at patient's floor/unit and/or counseling patient: C[place] [address] IN/OBS CONSULT LVL 5,80M Patient Type Established Medical Decision Making High Complexity Diagnoses Status post lumbar spinal fusion Z98.1 Hypertension I10 Diabetes mellitus E11.9 GERD without esophagitis K21.9 Ulcerative colitis K51.90
[2023-11-10] MEDS ORDERED: PHARMACY GLYCEMIC MGMT CONSULT PRN (16:31)
[2023-11-10] MEDS ORDERED: CARBOHYDRATES FOR HYPOGLYCEMIA PO PRN (16:31)
[2023-11-10] MEDS ORDERED: DEXTROSE 50% 50 ML SYRINGE IV PRN (16:31)
[2023-11-10] MEDS ORDERED: GLUCOSE 10 TAB/TUBE PO PRN (16:31)
[2023-11-10] MEDS ORDERED: GLUCOSE 40% GEL 15 GM TUBE PO PRN (16:31)
[2023-11-10] MEDS ORDERED: GLUCAGON FOR INJ 1 MG VIAL SQ PRN (16:31)
--- NOTE | 2023-11-10 17:02 | Pharmacy Report ---
Pharmacy Glycemic Short Note 2 - Date of Service November 10, 2023 - Glycemic Short BSG Results (Last 24 hours): 11/10/23 11/10/23 08:09 11:47 POC Glucose 110 H 151 H OUTPATIENT ANTIDIABETIC REGIMEN: * None - is on Rybelsus 3 mg PO daily for weight loss * HbA1c: 6.2% (09/30/23) ASSESSMENT: * 68 yo M admitted on 11/10/23 postoperatively following spinal surgery with Dr. Cavanaugh. Pharmacy has been consulted to assist with inpatient glycemic management. Patient denies a diagnosis of diabetes as an outpatient but per A1c does has pre-diabetes which is diet controlled. * BSGs were 110 preop and 151 postop. Did receive 8 mg of IV dexamethasone perioperatively. Is ordered Dexamethasone 6 mg IV daily x 3 days starting tomorrow. Ordered and tolerating a T2DM diet. * Will start Novolog based on weight/stress of 1-2 with a goal range of 110-140 mg/dL. Loose bolus parameters to start given patient did bring in Rybelsus 3 mg tab that will start daily tomorrow. * Lantus will be order for HS only tonight. Will scale dose to give 0-10 units total based upon BSG. PLAN FOR INPATIENT GLYCEMIC CONTROL: * Rybelsus 3 mg PO AM * Basal insulin * Lantus 0-10 units SC HS (see eMAR for more details) * Bolus insulin * NovoLog per scale ACHS or Q6hrs while NPO * Goal Range: Low 110 mg/dL - High 140 mg/dL * Correction Factor: 30 mg/dL/unit * Nutritional / Prandial insulin per carb ratio of 1 unit per 10 grams CHO consumed
[2023-11-10] MEDS: INSULIN ASPART PER UNIT CHARGE SC SCH (17:05)
[2023-11-10] MEDS ORDERED: Nursing to Pharmacy Communication SCH ×2 (17:15→18:15)
[2023-11-10] MEDS: oxyCODONE HCL IR 5 MG TAB (IMMEDIATE RELEASE) PO PRN (19:39)
[2023-11-10] MEDS: DOCUSATE SODIUM/SENNA 50/8.6MG TAB PO SCH (19:40)
[2023-11-10] MEDS: ATORVASTATIN 20 MG TAB PO SCH (19:40)
[2023-11-10] MEDS: TOFACITINIB CITRATE PO SCH (19:41)
[2023-11-10] MEDS: LANTUS PER UNIT CHARGE SQ SCH (20:53)
[2023-11-10] MEDS: LORazepam 0.5 MG TAB PO PRN (23:48)
[2023-11-10] MEDS: ACETAMINOPHEN 500 MG TAB PO PRN (23:48)
[2023-11-11] MEDS: POLYETHYLENE (MIRALAX) 17 GM PACK PO SCH (05:00)
[2023-11-11 06:24] LABS: Basophils # (auto) 0.01 K/uL (0.00-0.20); Basophils % (auto) 0.1 %; Eosinophils # (auto) 0.01 K/uL (0.00-0.50); Eosinophils % (auto) 0.1 %; Hematocrit (blood only) 34.1 % (42.0-52.0); Hemoglobin 11.2 g/dl (14.0-18.0); Immature Granulocytes # (auto) 0.07 K/uL (0.01-0.20); Immature Granulocytes % (auto) 0.6 %; Lymphocytes # (auto) 0.72 K/uL (1.20-3.40); Lymphocytes % (auto) 6.4 %; Mean Corpuscular Hemoglobin 30.4 pg (25.0-34.0); Mean Corpuscular Hgb Conc 32.8 g/dL (32.0-36.0); Mean Corpuscular Volume 92.7 fL (80.0-100.0); Mean Platelet Volume 10.3 fL (9.4-12.4); Monocytes # (auto) 1.02 K/uL (0.11-0.59); Neutrophils # (auto) 9.45 K/uL (1.40-6.50); Neutrophils % (auto) 83.8 %; Platelet Count 215 K/uL (130-400); RDW Coefficient of Variation 13.5 % (11.5-14.5); RDW Standard Deviation 46.5 fL (36.4-46.3); Red Blood Count 3.68 M/uL (4.70-6.10); White Blood Count 11.28 K/ul (4.8-10.8)
[2023-11-11] MEDS: RYBELSUS PO SCH (07:38)
[2023-11-11 07:43] LABS: Creatinine Clr Calc Pharmacy 80.4 ml/min; Est GFR (Non-African American) 75.9 ml/min; Potassium 3.9 mmol/L (3.5-5.1)
[2023-11-11] MEDS: traMADol HCL 50 MG TABLET PO PRN (08:17)
[2023-11-11] MEDS: dexAMETHasone 6 MG in SYRINGE 0 ML IV SCH (08:19)
[2023-11-11] MEDS: PANTOprazole 40 MG TAB PO SCH (08:19)
[2023-11-11] MEDS: LOSARTAN POTASSIUM 50 MG TAB PO SCH (08:19)
[2023-11-11] MEDS ORDERED: RYBELSUS PO SCH (09:00)
--- NOTE | 2023-11-11 11:59 | Orthopedic Progress Note ---
Date of Service November 11, 2023 Assessment & Plan (1) Status post lumbar spinal fusion: Plan: At this time we will continue physical therapy and monitor his TAYLER output anticipate discharge home the next day or so. Admission and Anticipated Discharge Date Admission Date: November 10, 2023 Subjective Back pain is controlled leg symptoms markedly improved Physical Exam Physical Exam: Patient is comfortable. Discussing the testing. Results & Data Vital Signs (Past 12 Hours) Vital Signs Temp Pulse Pulse Pulse Resp BP BP 11/11/23 11:57 36.6 C 82 16 123/72 11/11/23 07:29 36.4 C L 71 16 122/75 11/11/23 03:14 36.3 C L 67 14 107/67 Pulse Ox O2 Del Method 11/11/23 11:57 93 Room Air 11/11/23 07:29 94 Room Air 11/11/23 03:14 97 Room Air Queries Orthopedic Spine Obesity: Yes
[2023-11-11] MEDS: MAGNESIUM HYDROXIDE SUSP 30 ML UDC PO PRN (13:01)
--- NOTE | 2023-11-11 18:59 | Hospitalist Progress Note ---
Date of Service November 11, 2023 Assessment & Plan (1) Status post lumbar spinal fusion: Plan: -Pain control, IV fluids, DVT PPX - SCDs, still has drain, and perioperative abx per the primary team -doing well potentially home tomorrow per Mr. Costello Postoperative acute blood loss anemia -Hgb 14-->11 -iron replacement once moving bowels -added senna, caution with laxatives because of UC - usually runs loose Steroid induced leukocytosis, mild (2) Hypertension: Plan: -Stable -continue ARB -BMP reviewed, unremarkable, Cr at baseline (3) Diabetes mellitus: Plan: -Hold Semaglutide -Last Hgb A1c in September of this year was 6.2 -Will monitor BSG ACHS, goal is 110-160 -Suspect he will be hyperglycemic due to steroid use -Will start 5 units lantus BID -CF 30 and CR of 10 -Pharmacy glycemic consult ordered -BG reviewed, well controlled today (4) GERD without esophagitis: Plan: -Continue PPI (5) Ulcerative colitis: Plan: -No abdominal discomfort -Continue Xeljanz -good control Admission and Anticipated Discharge Date Admission Date: November 10, 2023 Subjective Doing really well, back pain well controlled has been up ambulating, still has drain UC really well controlled on Xeljanz. Has lost 30 pounds on rybelsis Physical Exam 2 Physical Exam: PHYSICAL EXAMINATION Last 24h vital signs reviewed, see documentation in flowsheet General: comfortable appearing, no distress, lying on side in bed HEENT: Normocephalic, atraumatic, pupils round and equal, sclerae anicteric, no conjunctival injection, moist mucus membranes Lungs: Normal respiratory effort. Clear to auscultation bilaterally. No RRW Heart: Regular rate and rhythm, no murmurs. No JVD Abdomen: Soft, nontender, nondistended. Bowel sounds present. Extremities: Warm, dry, well-perfused. No extremity edema. Neuro: Alert and oriented x 4, face symmetric, moves 4 extremities well Psych: Normal affect and behavior Results & Data Results & Data Vital Signs (Past 12 Hours) Vital Signs Temp Pulse Pulse Resp BP Pulse Ox O2 Del Method 11/11/23 15:23 36.7 C 80 16 107/57 L 94 Room Air 11/11/23 11:57 36.6 C 82 16 123/72 93 Room Air 11/11/23 07:29 36.4 C L 71 16 122/75 94 Room Air Laboratory Results 11/11/23 05:33 11/11/23 05:33 PG Care Time/CCT Total # of Minutes Spent Total Time Spent with Patient: Total time spent is greater than 50% in coordination of care (as documented) at patient's floor/unit and/or counseling patient: Coding Level of Care Code 12276 SUB INP/OBS CARE 2/35MIN Diagnoses Status post lumbar spinal fusion Z98.1 Hypertension I10 Diabetes mellitus E11.9 GERD without esophagitis K21.9 Ulcerative colitis K51.90
[2023-11-11] MEDS: MELATONIN 3 MG TAB PO SCH (19:38)
--- NOTE | 2023-11-12 07:14 | Pharmacy Report ---
Pharmacy Glycemic Sign Off Nt - Date of Service November 12, 2023 - Assessment & Plan ASSESSMENT: * Pharmacy was consulted by Christopher Kumar PA-C, on 11/10/23 for glycemic control and to write orders per [facility] inpatient glycemic control protocol. * Informed by nursing that patient is refusing most accuchecks and all insulin since admission. Attending has been notified. * Major changes made by pharmacy to antidiabetic regimen include: * Adding basal bolus insulin * Given patient is refusing all insulin, pharmacy will sign off. PLAN FOR INPATIENT GLYCEMIC CONTROL: * No basal insulin ordered * Continue NovoLog per scale ACHS/Q6hrs while NPO * Goal range = 110-140 mg/dl * CF = 30 mg/dl/unit * CR = 1 unit for ever 10 g CHO consumed * Pharmacy is signing off of glycemic consult and will no longer be making adjustments to inpatient regimen. Please feel free to re-consult if needed. Thank you.
[2023-11-12 07:50] VITALS: BP 118/82; PULSE 70; RESP 16; TEMP 97.7; O2SAT 97
--- NOTE | 2023-11-12 08:05 | Discharge Summary ---
Date of Service November 12, 2023 Admission HPI Per Admitting Provider 5-year-old male who presents with chronic persistent back and leg pain after failing course of nonoperative care is here for surgical invention. Principal Diagnosis Lumbar spinal stenosis with neurogenic claudication Discharge Data Allergies Allergy/AdvReac Type Severity Reaction Status Date / Time infliximab Allergy Severe Remicade-an Verified 11/10/23 08:24 aphylaxis Consultations 11/10/23 14:00 Consult Hospitalist Routine Procedures Performed Operation Date: 11/10/23 09:35 Actual Procedures p L2-L3 Decompression and Fusion, with Spinal Cord Monitoring(Not Applicable) - Armando Cavanaugh DO s Hardware Removal L3-L5(Not Applicable) - Armando Cavanaugh DO Ordered Studies 11/10/23 [place] lumbar spine 2-3V Routine Hospital Course (1) Neurogenic claudication due to lumbar spinal stenosis: Patient underwent lumbar decompression fusion tolerated as well as taken to the orthopedic floor postoperatively postop he progressed appropriately. Excellent strength testing. TAYLER drain decreasing. Pain well-controlled. Subsidy discharged home. Discharge orders and instructions found in chart for further review. Total Time Total Time Spent Total Time Spent (In Minutes): 20 minutes Discharge Plan Discharge Items Patient Disposition: Home - Self-Care Reason For Visit: Lumbar Radiculopathy, Lumbar Facet Arthropathy, Sp Discharge Diagnosis: Lumbar spinal stenosis with radiculopathy Activity: As commented below Non-emergency contact: Primary Care Provider Call non-emergency contact if: you have any medication questions Follow-up/Referrals: Slick Dunham DO [Primary Care Provider] - Diet: Regular Addtl Attending Provider Instructions: ACTIVITY RECOMMENDATIONS: SELF CARE INSTRUCTIONS AFTER THORACIC/LUMBAR FUSIONS 1. You may walk to your tolerance. It is good exercise for your legs and back. Expect some back and intermittent leg aches and pains. 2. You may perform "counter-top" level activities (make a sandwich, jasmin with a project, etc.). 3. No bending or lifting of more than 10 pounds or back twisting of any nature (roll like a log when turning in bed). 4. You may ride in a car for 20-30 minutes at a time. No driving until after your first visit with your doctor. 5. Frequent changes of position and restricting sitting to 30 minutes at a time will help limit the amount of back spasms and stiffness you may experience. 6. You may discontinue the use of ambulatory aids (cane, crutches, etc.) once your strength and confidence allow. 7. You may testing coordinator the shower and let water strike your incision when you arrive home at least once daily. Do not take a tub bath, sit in a hot tub or go into a swimming pool until after your first recheck in the office. SPECIAL CARE INSTRUCTIONS: VERY IMPORTANT TO READ AND REVIEW A. Your surgical incision has been closed with a cosmetic suture under the skin that will dissolve in about 6 weeks. In 14 days, you can use a pair of clean scissors and cut the suture that is left outside of the skin at the ends of your incision. 1. The small skin tapes can be removed 7 days after surgery if they have not fallen off by that point. 2. You may keep the wound open to air as much as possible to promote healing after post-op day number 5 unless told otherwise by your doctor. 3. If you think the wound looks like it is becoming infected (redness or worsening drainage) and/or you are experiencing fever, chill or worsening back pain and muscle spasms, contact the office so that we may evaluate you as soon as possible. B. Complications are uncommon, but please contact us if you have any signs or symptoms of: 1. wound infection (fever higher than 102.5 degrees F, redness, separation of wound, drainage, or increasing pain from the incision) 2. blood clots in legs (pain, swelling, redness and warmth in legs) 3. urinary tract infection (fever higher than 102.5 degrees F, burning upon urination or increased frequency of urination) 4. nerve problems (inability to walk on your toes or heels, numbness, loss of bowel or bladder control) 5. any other symptoms that concern you C. Please call the office at if you have any concerns or questions about your operation or recovery. D. No smoking! Smoking drastically decreases the chance of a solid fusion. E. Do not take any anti-inflammatory medications (Indocin, Advil, Motrin, Aspirin, Naprosyn, etc.) as these may inhibit the chance of a solid fusion. Tylenol is okay to take for pain. MANAGING PAIN AFTER SPINAL SURGERY 1. Narcotic medication is intended for short-term use and will be provided for surgical pain. Surgical pain usually lasts for a period of 4-6 weeks. Narcotic medication includes Percocet, Vicodin, Darvocet, Tylenol #3 or Lortab. 2. Longer-term pain is more appropriately treated with non-narcotic medication such as Tylenol ES. 3. Muscle spasm is not appropriately treated with narcotics. Muscle relaxers such as Soma, Flexeril or Skelaxin can be used along with Tylenol ES. 4. Remember that we all live with some "aches and pains". This is not unusual or uncommon after an injury or as we get older. a. Back pain is expected and may include muscle spasms for 4 to 6 weeks after surgery. The pain should gradually improve. If the pain worsens for no apparent reason, please contact the office. b. Intermittent leg pain may also be experienced and should not be concerned about unless it worsens for no apparent reason. If so, please contact the office. 5. We will provide appropriate medication within the normal guidelines of their prescribed use. We will also be very cautious and aware of potential abuse and extended duration of patients' medication needs. a. Pain medications are for your comfort and to assist with sleep and rest so that the tissue can heal. They are not provided in order to return to normal activity and should not be used through the day. To do so or worsening pain at night can result from ongoing tissue damage and development of tolerance to the prescribed medicine. 6. Please allow 2-3 days to process refills. Prescriptions will not be mailed but must be picked up at the office. FOLLOW UP VISIT: Keep your scheduled follow-up appointment. Any questions, please call the office at . Pending Studies at Discharge: No Stand-Alone Forms: [facility], Smoking Cessation Medications and DC Order Prescriptions: New tramadol 50 mg tablet 50 mg PO Q6H PRN (Reason: pain, moderate) Qty: 30 0RF oxycodone 5 mg tablet 5 mg PO Q6H PRN (Reason: pain) Qty: 30 0RF Continued Xeljanz 5 mg tablet 5 mg PO BID Qty: 180 3RF pantoprazole 40 mg tablet,delayed release (DR/EC) 40 mg PO QAM Qty: 90 3RF Rx Instructions: TAKE 1 TABLET DAILY tramadol 50 mg tablet 50 mg PO Q6H PRN (Reason: pain, moderate) Qty: 30 0RF Medical Cannabis 1 dose PO HS PRN (Reason: Sleep) Rx Instructions: VAPS atorvastatin 20 mg tablet 20 mg PO QPM Rx Instructions: TAKE 1 TABLET DAILY IN THE EVENING olmesartan [Benicar] 20 mg tablet 20 mg PO QAM Rybelsus 3 mg tablet 3 mg PO QAM methylprednisolone [Methylprednisone] 4 mg Tablet 4 mg PO UD Discharge Orders: Discharge Order (Routine); Ordered 11/12/23 Ordered By: Armando Cavanaugh Admission Data Admit Date/Time: 11/10/23 11:25 Attending Provider: Armando Cavanaugh Admit Provider: Armando Cavanaugh Primary Care Provider: Slick Dunham Other Providers: Santo Holland
== END 2023-11-12 09:34 | disposition home or self-care (01) | DRG 454 ==
LOC: ASU 07:41 → 3E 11:25
DX: M48.062 Spinal stenosis, lumbar region with neurogenic claudication; E11.9 Type 2 diabetes mellitus without complications; E66.9 Obesity, unspecified; K21.9 Gastro-esophageal reflux disease without esophagitis; Z68.30 Body mass index [BMI] 30.0-30.9, adult; Z87.891 Personal history of nicotine dependence; K51.90 Ulcerative colitis, unspecified, without complications; I10 Essential (primary) hypertension; D62 Acute posthemorrhagic anemia; J44.9 Chronic obstructive pulmonary disease, unspecified; E78.5 Hyperlipidemia, unspecified; Z79.899 Other long term (current) drug therapy